=== PATIENT | male | born 1950 | race Caucasian/White ===

== ENCOUNTER 2023-04-14 15:49 | Inpatient (IN) | payer MEDICARE ==
[~2023-04-14] VITALS: Ht 185.4 cm; Wt 84.4 kg
--- NOTE | 2023-04-14 16:35 | NUR ---
BIB CAREGIVER FROM [facility] HAS DIMENTIA
--- NOTE | 2023-04-14 16:41 | NUR ---
COVID SWAB COLLECTED AND SENT TO LAB.
--- NOTE | 2023-04-14 16:48 | NUR ---
ORCHESTRA TEACHER AT BEDSIDE
[2023-04-14 17:12] LABS: BASOPHILS % (AUTO) 0.4 % (0.0-2.0); EOSINOPHILS % (AUTO) 2.6 % (0.0-6.0); HEMATOCRIT 38 % (39-51); HEMOGLOBIN 12.5 g/dL (13.5-17.5); LYMPHOCYTES # (AUTO) 1.4 K/uL (0.8-4.8); LYMPHOCYTES % (AUTO) 28.2 % (20.0-44.0); MEAN CORPUSCULAR HGB CONC 33 g/dl (31.0-36.0); MEAN CORPUSCULAR VOLUME 88 fL (80-96); MONOCYTES # (AUTO) 0.3 K/uL (0.1-1.30); MONOCYTES % (AUTO) 6.6 % (2.0-12.0); NEUTROPHILS # (AUTO) 3.1 K/uL (1.8-8.9); NEUTROPHILS % (AUTO) 62.2 % (43.0-81.0); PLATELET COUNT (AUTO) 73 K/uL (150-450); RED BLOOD CELL COUNT(AUTO) 4.34 MIL/uL (4.5-6.0)
[2023-04-14 17:23] LABS: CALCIUM, SERUM 9.2 mg/dL (8.5-10.1); CARBON DIOXIDE 31 mmol/L (21-32); CHLORIDE 108 mmol/L (98-107); CREATININE 0.6 mg/dL (0.6-1.3); GLUCOSE 97 mg/dL (74-106); POTASSIUM 3.8 mmol/L (3.5-5.1); SODIUM SERUM 145 mmol/L (136-145); UREA NITROGEN, BLOOD 14 mg/dL (7-18)
[2023-04-14] MEDS ORDERED: SERT100T12 PO (17:30)
[2023-04-14] MEDS ORDERED: HALO2ORA3 PO (17:30)
[2023-04-14] MEDS ORDERED: LORA2ORA5 PO (17:30)
[2023-04-14] MEDS ORDERED: LEVO500T90 PO (17:30)
[2023-04-14] MEDS ORDERED: RIVA10TA PO (17:30)
[2023-04-14] MEDS ORDERED: HALO2ORA4 PO (17:30)
[2023-04-14] MEDS ORDERED: OXCA150T13 PO (17:30)
[2023-04-14] MEDS ORDERED: METO-357 PO (17:30)
[2023-04-14] MEDS ORDERED: MYRBETRIQ PO (17:30)
[2023-04-14] MEDS ORDERED: QUET25TA PO ×2 (17:30)
[2023-04-14] MEDS ORDERED: LIDO1ADH82 TP (17:30)
[2023-04-14] MEDS ORDERED: ACET-868 PO (17:30)
[2023-04-14] MEDS ORDERED: ATOR40TA PO (17:30)
[2023-04-14] MEDS ORDERED: DIGO125T PO (17:30)
[2023-04-14] MEDS ORDERED: DONE10TA44 PO (17:30)
[2023-04-14] MEDS ORDERED: IBUP-1953 PO (17:30)
[2023-04-14 17:38] LABS: ALANINE AMINOTRANSFERASE 23 U/L (12-78); ALBUMIN 3.6 g/dL (3.4-5.0); ALCOHOL, BLOOD < 3 mg/dL (0-0); ALKALINE PHOSPHATASE 72 U/L (46-116); ASPARTATE AMINOTRANSFERASE 17 U/L (15-37); BILIRUBIN,DIRECT 0.2 mg/dL (0.0-0.2); BILIRUBIN,TOTAL 0.9 mg/dL (0.2-1.0); TOTAL PROTEIN, SERUM 6.2 g/dL (6.4-8.2)
[2023-04-14 18:29] LABS: LYMPHOCYTES % (MANUAL) 32 % (16-48); MONOCYTES % (MANUAL) 6 % (0-11.0); NEUTROPHILS % (MANUAL) 62 (42-76)
[2023-04-14] MEDS ORDERED: LORAZEPAM INJ 2 MG/ML VIAL ONE (18:53)
[2023-04-14] MEDS ORDERED: LORAZEPAM INJ 2 MG/ML VIAL IV ONE (19:00)
--- NOTE | 2023-04-14 19:26 | NUR ---
ALONDRA BREWER [phone]
--- NOTE | 2023-04-14 19:53 | NUR ---
OSMAN MENDEZ CALLED TO GIVE UPDATE ON PSYCH CLINICIAN FORTINO. FORTINO IS ON HIS WAY TO EVALUATE.
--- NOTE | 2023-04-14 20:34 | NUR ---
ROOM GPS 212
--- NOTE | 2023-04-14 21:26 | NUR ---
GPS 220
--- NOTE | 2023-04-14 21:56 | NUR ---
Report given to Burton PONCE
--- NOTE | 2023-04-14 22:28 | NUR ---
PT TRANSFERRED TO GPS 220 VIA HOSPITAL PROTOCOL
[2023-04-14] MEDS ORDERED: ACETAMINOPHEN 325 MG TABLET PO PRN (22:30)
[2023-04-14] MEDS ORDERED: MAG HYDROX/AL HYDROX/SIMETH 30 ML UDC PO PRN (22:30)
[2023-04-14] MEDS ORDERED: MAGNESIUM HYDROXIDE 30 ML UDC PO PRN (22:30)
[2023-04-14] MEDS ORDERED: BLOOD SUGAR DIAGNOSTIC 1 EACH STRIP IN ONE (23:00)
--- NOTE | 2023-04-14 23:00 | NUR ---
RN NOTES: REFUSED FULL BODY SKIN ASSESSMENT AND PHOTS TAKEN PT. REFUSED FULL BODY SKIN ASSESSMENT AND PHOTOS TAKEN ,PT.ALLOWED ONLY RIGHT/ LEFT ARMS, HANDS,ELBOWS TO BE ASSESS,PT.BEHAVIOR VERY UNCOOPERATIVE PARANOID, AGGRESSIVE , UNPERDICTABLE AT THIS TIME.PER PT. STATES LIVE ME ALONE .
[2023-04-14 23:23] VITALS: BP 123/74
--- NOTE | 2023-04-14 23:41 | NUR ---
RN NOTES : ADMISSION NOTES: ADMITTED THIS 72Y/O MALE PATIENT ADMITTED FROM [facility], INITIALLY FROM [facility]. ADMITTED TO 5150 HOLD PER HOLD GD , DTO PT. INCREASED AGITATION AND AGGRESSIVE, BEHAVIOR AT [facility], UPON FACE TO FACE ASSESSMENT PATIENT IS A&OX1 ,CONFUSED, FORGETFUL,TANGENTIAL, ANXIOUS, EASILY AGITATED ,DISORGNIZED,HYPERVERBAL TALKING ,DISHELVED,POOR HYGINE, UNCOOPERTIVE,POOR DECISION MAKING, CHALLENGING,GUARDED, DENIES SI /HI AT THIS TIME, PT. IS POOR HISTORIAN, POOR INSIGHT ,POOR JUDGEMENT , BOTH MD AWARE AND NOTIFIED OF THE ADMISSION, BELONGINGS CONTRABAND WERE DONE , PT. REFUSED SIGNS ADMISSION CONSENT PAPER DUE TO CONFUSED,DISORGNIZED,PT.REFUSED FULL BODY SKIN ASSESSMENT AND PHOTOS TAKEN AND REFUSED INITIALLY ACCU CHECK ENCOURAGED X3 BUT PT.STRONGLY REFUSED , PT. RIGHTS DISCUSS BY HOOP FLARING MACHINE OPERATOR HELPER , PROVIDE THE PT. WITH HANDBOOK, AND MEDICATIONS GUIDE, ENVIRONMENTAL SAFETY CHECK DONE, ENCOURAGED PT. VERBALIZED ANY FEELING CONCERN TO STAFF, ORIENT TO UNIT POLICY, NO ACUTE DISTRESS NOTED,VITAL SIGNS WNL ,DENIES ANY PAIN AT THIS TIME,WILL CONTINUE TO MONITOR FOR Q15 SAFETY AND BEHAVIOR.
[2023-04-15 08:00] VITALS: BP 136/80
[2023-04-15] MEDS ORDERED: Medication Not On Formulary EA ([Myrbetriq] 50 MG) PO SCH (09:00)
[2023-04-15] MEDS: METOPROLOL SUCCINATE 50 MG TAB.SR.24H PO SCH (09:08)
[2023-04-15] MEDS: DIGOXIN 0.125 MG TABLET PO SCH (09:09)
[2023-04-15] MEDS: ACETAMINOPHEN 325 MG TABLET PO SCH ×3 (09:09→16:56)
[2023-04-15] MEDS: DIVALPROEX SODIUM 125 MG CAP.SPRINK PO SCH ×3 (11:55→16:56)
[2023-04-15] MEDS: SERTRALINE HCL 50 MG TABLET PO SCH (11:55)
[2023-04-15] MEDS: QUETIAPINE FUMARATE 25 MG TABLET PO SCH ×2 (11:55→16:56)
--- NOTE | 2023-04-15 12:03 | NUR ---
RN-NOTES DEPAKOTE 1300 DOSAGE HELD DUE TO PREVIOUS ADMINISTRATION AT 1155. DR. BOCANEGRA NOTIFIED AND T.O. TO HOLD MEDICATION RECEIVED.
[2023-04-15] MEDS: LORAZEPAM 0.5 MG TABLET PO PRN (12:53)
--- NOTE | 2023-04-15 12:53 | NUR ---
RN- NOTES ATIVAN ADMINISTERED DUE TO PATIENT INCREASED AGITATION AND YELLING.
--- NOTE | 2023-04-15 15:16 | NUR ---
RN-CO: Notified Dr Baptiste regarding poor PO , refusing meal. Awaiting for order.
[2023-04-15 16:00] VITALS: BP 102/68
[2023-04-15] MEDS: ENSURE ENLIVE CHOC 237 ML CAN PO SCH (16:56)
[2023-04-15] MEDS: ATORVASTATIN 40 MG TABLET PO SCH (17:03)
[2023-04-15] MEDS: RIVAROXABAN 10 MG TABLET PO SCH (17:04)
--- NOTE | 2023-04-15 18:41 | NUR ---
RN- CLOSING NOTES PATIENT AWAKE, SITTING UP IN THE MARIAN CHAIR, BREATHING EVEN AND NON LABORED WITH NO S/S OF DISTRESS. PATIENT IS COOPERATIVE/UNCOOPERATIVE AT TIMES, CONFUSED, DISORIENTED, ANXIOUS, RESPONDING TO VISUAL AND AUDITORY HALLUCINATIONS, RAMBLING TO HIMSELF, AND HYPERVERBAL. PATIENT IS MEDICATION RESISTANT BUT MEDICATION COMPLIANT WITH ENCOURAGEMENT. PATIENT IS RESISTANT TO CARE. DENIES SI/HI BUT IS CONFUSED AT THIS TIME. WILL CONTINUE TO MONITOR Q 15 MINUTES FOR SAFETY AND BEHAVIOR.
[2023-04-15 20:51] VITALS: BP 100/64
[2023-04-15] MEDS: OXCARBAZEPINE 150 MG TABLET PO SCH (21:06)
[2023-04-15] MEDS: DONEPEZIL 5 MG TABLET PO SCH (21:06)
[2023-04-15] MEDS ORDERED: QUETIAPINE FUMARATE 25 MG TABLET PO SCH (22:00)
[2023-04-15] MEDS: TEMAZEPAM 7.5 MG CAPSULE PO PRN (22:24)
--- NOTE | 2023-04-15 22:24 | NUR ---
RN- NOTES RESTORIL ADMINISTERED DUE TO PATIENT'S INCREASED WAKEFULNESS AND RESTLESSNESS.
--- NOTE | 2023-04-16 06:32 | NUR ---
RN- CLOSING NOTES PATIENT ASLEEP IN BED, BREATHING EVEN AND NON LABORED WITH NO S/S OF DISTRESS. PATIENT IS COOPERATIVE/UNCOOPERATIVE AT TIMES, CONFUSED, DISORIENTED, ANXIOUS, RESPONDING TO VISUAL AND AUDITORY HALLUCINATIONS, RAMBLING TO HIMSELF, AND HYPERVERBAL. PATIENT IS MEDICATION RESISTANT BUT MEDICATION COMPLIANT WITH ENCOURAGEMENT. PATIENT IS RESISTANT TO CARE. DENIES SI/HI BUT IS CONFUSED AT THIS TIME. WILL CONTINUE TO MONITOR Q 15 MINUTES FOR SAFETY AND BEHAVIOR.
[2023-04-16 07:15] LABS: BASOPHILS % (AUTO) 0.5 % (0.0-2.0); EOSINOPHILS % (AUTO) 2.1 % (0.0-6.0); HEMATOCRIT 38 % (39-51); HEMOGLOBIN 12.5 g/dL (13.5-17.5); LYMPHOCYTES # (AUTO) 1.4 K/uL (0.8-4.8); LYMPHOCYTES % (AUTO) 24.4 % (20.0-44.0); MEAN CORPUSCULAR HGB CONC 33 g/dl (31.0-36.0); MEAN CORPUSCULAR VOLUME 89 fL (80-96); MONOCYTES # (AUTO) 0.4 K/uL (0.1-1.30); MONOCYTES % (AUTO) 7.4 % (2.0-12.0); NEUTROPHILS # (AUTO) 3.9 K/uL (1.8-8.9); NEUTROPHILS % (AUTO) 65.6 % (43.0-81.0); PLATELET COUNT (AUTO) 75 K/uL (150-450); RED BLOOD CELL COUNT(AUTO) 4.29 MIL/uL (4.5-6.0); WHITE BLOOD COUNT (AUTO) 5.9 K/uL (4.3-11.0)
[2023-04-16 07:27] LABS: CHOLESTEROL 102 mg/dL (<200); HDL CHOLESTEROL 50 mg/dL (40-60); LDL 51 mg/dL (0-99); TRIGLYCERIDES 51 mg/dL (30-150)
[2023-04-16 07:32] LABS: CALCIUM, SERUM 9.1 mg/dL (8.5-10.1); CARBON DIOXIDE 30 mmol/L (21-32); CHLORIDE 109 mmol/L (98-107); CREATININE 0.6 mg/dL (0.6-1.3); GLUCOSE 86 mg/dL (74-106); POTASSIUM 3.4 mmol/L (3.5-5.1); SODIUM SERUM 146 mmol/L (136-145); UREA NITROGEN, BLOOD 12 mg/dL (7-18)
[2023-04-16 07:47] LABS: DIGOXIN 0.34 ng/mL (0.90-2.00)
[2023-04-16 08:00] VITALS: BP 127/64
[2023-04-16] MEDS: ACETAMINOPHEN 325 MG TABLET PO SCH ×3 (08:27→17:49)
[2023-04-16] MEDS: ENSURE ENLIVE CHOC 237 ML CAN PO SCH ×2 (08:27→17:49)
[2023-04-16] MEDS: DIVALPROEX SODIUM 125 MG CAP.SPRINK PO SCH ×3 (08:37→17:49)
[2023-04-16] MEDS: QUETIAPINE FUMARATE 25 MG TABLET PO SCH ×2 (08:37→17:48)
[2023-04-16] MEDS: SERTRALINE HCL 50 MG TABLET PO SCH (08:37)
[2023-04-16] MEDS: METOPROLOL SUCCINATE 50 MG TAB.SR.24H PO SCH (08:38)
[2023-04-16] MEDS: DIGOXIN 0.125 MG TABLET PO SCH (08:39)
--- NOTE | 2023-04-16 09:21 | NUR ---
HAIDER Initial Discharge Note: Patient currently resides at [facility] locatedat [address] [place] [address]; ([phone]). HAIDER spoke with Annia branch ([phone]) who stated that pt is welcomed back when stable they would just need to re-assess pt before pt returning back. HAIDER will contact pt's Tiffanie ([phone]) to discuss treatment/discharge plan. HAIDER will work with the family, pt, and doctor to help coordinate appropriate discharge.
--- NOTE | 2023-04-16 09:21 | NUR ---
HAIDER Clinical Note: Pt placed on a 5150 hold for danger to others and GD. Per hold, pt was aggressive at [facility]. Patient currently resides at [facility] locatedat [address] [place] [address]; ([phone]). HAIDER spoke with Annia branch ([phone]) who stated that pt is welcomed back when stable they would just need to re-assess pt before pt returning back. HAIDER will contact pt's Tiffanie ([phone]) to discuss treatment/discharge plan.
[2023-04-16] MEDS ORDERED: POTASSIUM CHLORIDE 20 MEQ TAB.PRT.SR PO SCH (10:00)
--- NOTE | 2023-04-16 13:23 | NUR ---
HAIDER Family Contact: HAIDER contacted pt's Tiffanie ([phone]) to discuss treatment/discharge plan. Tiffanie stated that she is the DPOA and this script writer requested DPOA document from [facility] ([phone]) to be sent. Annia branch stated she will send it. Tiffanie stated when pt is stable and medications she would want pt to return back to [facility]. Noted.
--- NOTE | 2023-04-16 13:45 | NUR ---
NURSE NOTE: TEXTED TECH TO LET HER KNOW TO COME BACK FOR DOPPLER. DID NOT RECEIVE A TEXT BACK. WILL CONT TO MONITOR.
[2023-04-16] MEDS: LORAZEPAM 0.5 MG TABLET PO PRN (16:50)
--- NOTE | 2023-04-16 16:50 | NUR ---
NURSE NOTE: PT AGITATED AT THIS TIME. YELLING AT STAFF, COMBATIVE. ATIVAN PO ADMINISTERED ORDERED. PT YONATAN WELL. WILL CONT TO MONITOR.
[2023-04-16 17:26] VITALS: BP 123/64
[2023-04-16] MEDS: ATORVASTATIN 40 MG TABLET PO SCH (17:49)
[2023-04-16] MEDS: RIVAROXABAN 10 MG TABLET PO SCH (17:49)
--- NOTE | 2023-04-16 17:50 | NUR ---
NURSE NOTE: PT CALM AT THIS TIME. ATIVAN EFFECTIVE. WILL CONT TO MONITOR.
--- NOTE | 2023-04-16 18:45 | NUR ---
NURSE NOTE: ATTEMPTED TO COLLECT CLEAN CATCH URINE. PT HAD JUST VOIDED. WILL PASS ON TO PM SHIFT.
[2023-04-16] MEDS: OXCARBAZEPINE 150 MG TABLET PO SCH (21:07)
[2023-04-16] MEDS: DONEPEZIL 5 MG TABLET PO SCH (21:08)
--- NOTE | 2023-04-17 07:10 | NUR ---
RN NOTE; WE TRIED TO COLLECT URINE VIA STRAIGHT CATH BUT PT START KICKING, AGGRESSIVE AND SCREAMING.
[2023-04-17 08:00] VITALS: BP 114/77
[2023-04-17] MEDS: ENSURE ENLIVE CHOC 237 ML CAN PO SCH ×2 (08:35→17:26)
[2023-04-17] MEDS: ACETAMINOPHEN 325 MG TABLET PO SCH ×3 (09:26→17:27)
[2023-04-17] MEDS: QUETIAPINE FUMARATE 25 MG TABLET PO SCH ×2 (09:26→17:27)
[2023-04-17] MEDS: METOPROLOL SUCCINATE 50 MG TAB.SR.24H PO SCH (09:27)
[2023-04-17] MEDS: DIVALPROEX SODIUM 125 MG CAP.SPRINK PO SCH ×3 (09:27→17:26)
[2023-04-17] MEDS: DIGOXIN 0.125 MG TABLET PO SCH (09:27)
[2023-04-17] MEDS: LORAZEPAM 0.5 MG TABLET PO PRN (11:11)
[2023-04-17] MEDS ORDERED: SERTRALINE HCL 50 MG TABLET PO SCH (13:00)
[2023-04-17] MEDS: SERTRALINE HCL 50 MG TABLET PO SCH (13:31)
[2023-04-17 16:00] VITALS: BP 116/62
[2023-04-17] MEDS: ATORVASTATIN 40 MG TABLET PO SCH (17:27)
[2023-04-17] MEDS: RIVAROXABAN 10 MG TABLET PO SCH (17:28)
--- NOTE | 2023-04-17 19:00 | NUR ---
RN- CLOSING NOTES PATIENT AWAKE, SITTING UP IN THE MARIAN CHAIR, BREATHING EVEN AND NON LABORED WITH NO S/S OF DISTRESS. PATIENT IS COOPERATIVE/UNCOOPERATIVE AT TIMES, CONFUSED, DISORIENTED, ANXIOUS, RESPONDING TO VISUAL AND AUDITORY HALLUCINATIONS, RAMBLING TO HIMSELF, AND HYPERVERBAL. PATIENT IS MEDICATION RESISTANT BUT MEDICATION COMPLIANT WITH ENCOURAGEMENT. PATIENT IS RESISTANT TO CARE AT TIMES. DENIES SI/HI BUT IS CONFUSED AT THIS TIME. WILL CONTINUE TO MONITOR Q 15 MINUTES FOR SAFETY AND BEHAVIOR. AT THIS TIME UP IN MARIAN- CHAIR IN [facility], PO FLUIDS OFFERED AND TAKEN. .
[2023-04-17 19:45] VITALS: BP 107/65
[2023-04-17] MEDS: OXCARBAZEPINE 150 MG TABLET PO SCH (22:23)
[2023-04-17] MEDS: DONEPEZIL 5 MG TABLET PO SCH (22:24)
[2023-04-18] MEDS: LORAZEPAM 0.5 MG TABLET PO PRN ×2 (04:22→12:46)
[2023-04-18 08:00] VITALS: BP 126/65
[2023-04-18] MEDS: ENSURE ENLIVE CHOC 237 ML CAN PO SCH ×2 (08:20→17:13)
[2023-04-18] MEDS: DIVALPROEX SODIUM 125 MG CAP.SPRINK PO SCH ×4 (09:00→17:13)
[2023-04-18] MEDS: ACETAMINOPHEN 325 MG TABLET PO SCH ×4 (09:00→17:13)
[2023-04-18] MEDS: QUETIAPINE FUMARATE 25 MG TABLET PO SCH ×4 (09:00→17:13)
[2023-04-18] MEDS: METOPROLOL SUCCINATE 50 MG TAB.SR.24H PO SCH ×2 (09:00→09:39)
[2023-04-18] MEDS: DIGOXIN 0.125 MG TABLET PO SCH ×2 (09:00→09:40)
--- NOTE | 2023-04-18 09:09 | NUR ---
WOUND CARE CONSULT: PT EATING AT THIS TIME. LEFT ELBOW ABRASION IS DRY AT THIS TIME. PER NURSING STAFF. THERE IS REDNESS/RASH TO INNER BUTTOCKS, PRESENT ON ADMISSION. RECOMMENDATIONS MADE FOR SKIN PROTECTION. DISCUSSED WITH NURSING STAFF. MD IN AGREEMENT WITH PLAN OF CARE.
[2023-04-18] MEDS: SERTRALINE HCL 50 MG TABLET PO SCH (12:46)
--- NOTE | 2023-04-18 12:46 | NUR ---
RN- NOTES ATIVAN ADMINISTERED DUE TO PATIENT INCREASED AGITATION, AGGRESSIVE BEHAVIOR, AND YELLING/SCREAMING AT OTHER PATIENTS/STAFF.
[2023-04-18 16:00] VITALS: BP 117/60
[2023-04-18] MEDS: ATORVASTATIN 40 MG TABLET PO SCH (17:12)
[2023-04-18] MEDS: RIVAROXABAN 10 MG TABLET PO SCH (17:15)
[2023-04-18] MEDS: CLOTRIMAZOLE 1% 15 GM TUBE TP SCH (17:15)
--- NOTE | 2023-04-18 18:38 | NUR ---
RN- CLOSING NOTES PATIENT AWAKE, SITTING UP IN THE MARIAN CHAIR, BREATHING EVEN AND NON LABORED WITH NO S/S OF DISTRESS. PATIENT IS COOPERATIVE/UNCOOPERATIVE AT TIMES, CONFUSED, DISORIENTED, ANXIOUS, ADMITTING TO VISUAL HALLUCINATIONS, AND RAMBLING TO HIMSELF. PATIENT IS MEDICATION RESISTANT BUT MEDICATION COMPLIANT WITH ENCOURAGEMENT. DENIES SI/HI BUT IS CONFUSED AT THIS TIME. WILL CONTINUE TO MONITOR Q 15 MINUTES FOR SAFETY AND BEHAVIOR.
[2023-04-18 20:27] VITALS: BP 106/62
[2023-04-18] MEDS: DONEPEZIL 5 MG TABLET PO SCH (21:40)
[2023-04-18] MEDS: OXCARBAZEPINE 150 MG TABLET PO SCH (21:41)
[2023-04-19 08:00] VITALS: BP 126/64
[2023-04-19] MEDS: ENSURE ENLIVE CHOC 237 ML CAN PO SCH ×2 (08:37→17:00)
[2023-04-19] MEDS: ACETAMINOPHEN 325 MG TABLET PO SCH ×3 (08:38→17:00)
[2023-04-19] MEDS: DIVALPROEX SODIUM 125 MG CAP.SPRINK PO SCH ×3 (08:38→17:00)
[2023-04-19] MEDS: METOPROLOL SUCCINATE 50 MG TAB.SR.24H PO SCH (08:38)
[2023-04-19] MEDS: QUETIAPINE FUMARATE 25 MG TABLET PO SCH (08:39)
[2023-04-19] MEDS: DIGOXIN 0.125 MG TABLET PO SCH (08:39)
[2023-04-19] MEDS: CLOTRIMAZOLE 1% 15 GM TUBE TP SCH ×2 (09:37→17:59)
[2023-04-19] MEDS: risperiDONE 1 MG TABLET PO SCH ×2 (12:40→17:00)
--- NOTE | 2023-04-19 15:35 | NUR ---
Pt. is highly agitated, screaming, yelling, tried to get out from bed, combative and not following direction. Addendum: 04/19/23 at 1604 by NORMA COLLINS RN Pt. is combative to staffs and aggressive and code claire was called. Dr. Michaud gave an order of Zyprexa 10 mg IM and Ativan 5 mg IM. Addendum: 04/19/23 at 1801 by NORMA OCLLINS RN Clarification of the order: Zyprexa 10 mg IM and Ativan 1 mg IM.
[2023-04-19] MEDS ORDERED: LORAZEPAM INJ 2 MG/ML VIAL IM ONE (16:00)
[2023-04-19] MEDS ORDERED: OLANZAPINE 10 MG VIAL IM ONE (16:00)
[2023-04-19] MEDS: RIVAROXABAN 10 MG TABLET PO SCH (18:00)
[2023-04-19] MEDS: ATORVASTATIN 40 MG TABLET PO SCH (18:00)
--- NOTE | 2023-04-19 18:00 | NUR ---
RN-NOTES ALL 1700 MEDICATIONS WAS NOT ADMINISTER DUE TO PATIENT IS TOO SEDATED AT THIS TIME,NO ACUTE DISTRESS. PATIENT'S ALIE BEST WAS NOTIFIED REGARDING THE IM MEDICATIONS. WILL CONT. MONITORING FOR SAFETY AND BEHAVIOR. WILL ENDORSE TO INCOMING SHIFT/ NURSE FOR THE CONTINUITY OF CARE. Addendum: 04/19/23 at 1805 by MICHAELLE CHAVEZ RN ALSO 1800 MEDICATIONS WAS NOT ADMINISTER DUE TO PATIENT WAS TOO SEDATED.
[2023-04-19 19:01] VITALS: BP 120/65
--- NOTE | 2023-04-19 19:57 | NUR ---
GENERATOR SWITCHBOARD OPERATOR GPS NOTE PT RCVD IN BED, APPEARS SLEEPING, EASY TO AROUSE, NO S/SX OF ACUTE RESPIRATORY DISTRESS , BILAT CHEST EXPANSION NOTED, PT AT ROOM AIR, BREATHING EVEN AND UNLABORED. A/O 1-2. DENIES PAIN AT THIS TIME. SAFETY SR'S UP ORDERED. WILL MONITOR Q15 MINS FOR PT'S SAFETY AND BEHAVIOR. SAFETY MEASURES OBSERVED.
[2023-04-19 20:00] VITALS: BP 120/75
[2023-04-19] MEDS: DONEPEZIL 5 MG TABLET PO SCH (21:44)
[2023-04-19] MEDS: OXCARBAZEPINE 150 MG TABLET PO SCH (21:44)
[2023-04-19] MEDS: TEMAZEPAM 7.5 MG CAPSULE PO PRN (22:23)
--- NOTE | 2023-04-19 22:24 | NUR ---
GPS SUPERVISOR BROADLOOM NOTE PT AWAKE, LITTLE BIT RESTLESS, GUARDED, MUMBLING, NEEDS FREQUENT REDIRECTION. PRN RESOTRIL 7.5 MG GIVEN FOR INSOMNIA. WILL CONTINUE TO MONITOR Q15 MINS.
--- NOTE | 2023-04-19 23:23 | NUR ---
GPS COMPUTATIONAL THEORY SCIENTIST NOTE 1 HR POST RESTORIL, PT REMAINS AWAKE, CONFUSED, EASILY AGITATED, WITH EPISODES OF PARANOIA, DISHEVELED, 3 STAFFS ASSISTED WITH PT'S CARE, KEPT PT CLEAN AND DRY, REPOSITIONED IN BED- PT UNCOOPERATIVE. CONTINUE TO MONITOR PT'S SAFETY AND BEHAVIOR. SR'S UP ORDERED, BED ALARM ON.
--- NOTE | 2023-04-20 06:11 | NUR ---
GPS CONDENSER WINDER CLOSING NOTES PATIENT AWAKE, RESTING IN HIS BED, BREATHING EVEN AND NON LABORED WITH NO S/S OF DISTRESS. PATIENT IS COOPERATIVE/UNCOOPERATIVE AT TIMES, CONFUSED, DISORIENTED, ANXIOUS, ADMITTING TO VISUAL HALLUCINATIONS, AND RAMBLING TO HIMSELF. PATIENT IS MEDICATION RESISTANT BUT MEDICATION COMPLIANT WITH ENCOURAGEMENT. DENIES SI/HI BUT IS CONFUSED AT THIS TIME. COMBATIVE AND UNCOOPERATIVE WITH CARE, REQUIRED MULTIPLE STAFF FOR PROVIDING CARE AND CLEANING. AM CARE PROVIDED BY 3 STAFFS. PT KEPT CLEAN AND DRY, REPOSITIONED. BED AT LOWEST POSITION, BED ALARM ON, SAFETY MEASURES OBSERVED. WILL CONTINUE TO MONITOR Q 15 MINUTES FOR SAFETY AND BEHAVIOR. WILL ENDORSE CONTINUITY OF CARE TO AM INCOMING NURSE.
[2023-04-20 08:00] VITALS: BP 144/71
[2023-04-20] MEDS: DIVALPROEX SODIUM 125 MG CAP.SPRINK PO SCH ×3 (09:53→17:19)
[2023-04-20] MEDS: ENSURE ENLIVE CHOC 237 ML CAN PO SCH ×2 (09:53→17:00)
[2023-04-20] MEDS: risperiDONE 1 MG TABLET PO SCH ×3 (09:53→17:19)
[2023-04-20] MEDS: ACETAMINOPHEN 325 MG TABLET PO SCH ×3 (09:53→17:19)
[2023-04-20] MEDS: METOPROLOL SUCCINATE 50 MG TAB.SR.24H PO SCH (09:53)
[2023-04-20] MEDS: DIGOXIN 0.125 MG TABLET PO SCH (09:53)
[2023-04-20] MEDS: CLOTRIMAZOLE 1% 15 GM TUBE TP SCH ×2 (09:55→17:24)
--- NOTE | 2023-04-20 11:56 | NUR ---
Court Notification: HAIDER contacted pt's Tiffanie ([phone]) and left a voicemail of [phone] hearing.
--- NOTE | 2023-04-20 11:57 | NUR ---
Court Hearing: Pt's court hearing for 5250 hearing was today and it was upheld for GD and danger to others.
[2023-04-20] MEDS: LORAZEPAM 0.5 MG TABLET PO PRN (15:40)
[2023-04-20 16:00] VITALS: BP 140/72
--- NOTE | 2023-04-20 16:04 | NUR ---
RN-NOTES PATIENT IS AGITATED,COMBATIVE KICKING AND HITTING STAFF WITH BOTH HANDS DURING PATIENT CARE. . REDIRECTED PATIENT AND ATIVAN 1MG P.O GIVEN PRN ORDER. WILL CONT. MONITORING FOR SAFETY AND BEHAVIOR.
--- NOTE | 2023-04-20 17:10 | NUR ---
RN-NOTES PATIENT SLEEPING WITH BREATHING EVEN AND NON LABORED EASILY AROUSED. NO ACUTE DISTRESS NOTED.
[2023-04-20] MEDS: RIVAROXABAN 10 MG TABLET PO SCH (17:19)
[2023-04-20] MEDS: ATORVASTATIN 40 MG TABLET PO SCH (17:19)
--- NOTE | 2023-04-20 20:35 | NUR ---
PIN GAME MACHINE INSPECTOR NOTE RECEIVED PATIENT IN BED SLEEPING BUT EASY TO AROUSE, NO SIGN OF DISTRESS AND DISCOMFORT NOTED AT THIS TIME. SAFETY MEASURES IN PLACE, WILL CONTINUE TO MONITOR FOR ANY CHANGE OF CONDITION.
[2023-04-20] MEDS: OXCARBAZEPINE 150 MG TABLET PO SCH (22:05)
[2023-04-20] MEDS: DONEPEZIL 5 MG TABLET PO SCH (22:05)
[2023-04-21 08:00] VITALS: BP 110/59
[2023-04-21] MEDS: ENSURE ENLIVE CHOC 237 ML CAN PO SCH ×2 (08:25→17:08)
[2023-04-21] MEDS: ACETAMINOPHEN 325 MG TABLET PO SCH ×3 (08:26→17:08)
[2023-04-21] MEDS: DIGOXIN 0.125 MG TABLET PO SCH (08:26)
[2023-04-21] MEDS: DIVALPROEX SODIUM 125 MG CAP.SPRINK PO SCH ×3 (08:26→17:03)
[2023-04-21] MEDS: risperiDONE 1 MG TABLET PO SCH ×3 (08:26→17:03)
[2023-04-21] MEDS: CLOTRIMAZOLE 1% 15 GM TUBE TP SCH ×2 (08:28→17:19)
[2023-04-21] MEDS: METOPROLOL SUCCINATE 50 MG TAB.SR.24H PO SCH (08:28)
[2023-04-21] MEDS: LORAZEPAM 0.5 MG TABLET PO PRN (12:49)
--- NOTE | 2023-04-21 12:50 | NUR ---
RN-NOTES NOTED PATIENT DISROBING,TALKING AND MUMBLING TO SELF,GETTING OUT OF BED UNASSISTED, REDIRECTED AND ATIVAN 1MG P.O GIVEN PRN ORDER. WILL CONT. MONITORING FOR SAFETY AND BEHAVIOR.
--- NOTE | 2023-04-21 13:50 | NUR ---
RN-NOTES PATIENT IN BED CALM ,AWAKE,A/OX1,NO ACUTE DISTRESS NOTED.
[2023-04-21 16:00] VITALS: BP 99/60
[2023-04-21] MEDS: Z GUARD REMEDY 4 OZ OINT TP PRN (17:00)
[2023-04-21] MEDS: ATORVASTATIN 40 MG TABLET PO SCH (17:03)
[2023-04-21] MEDS: RIVAROXABAN 10 MG TABLET PO SCH (17:03)
--- NOTE | 2023-04-21 18:52 | NUR ---
RN-NOTES PATIENT IN BED AWAKE,A/O X1. NOTED WITH LABILE AND AGGRESSIVE BEHAVIOR DURING PATIENT CARE. HITTING AND KICKING STAFF.RESPONDING TO INTERNAL STIMULI. NEEDS FREQUENT REDIRECTIONS AND REORIENTATION TO PLACE TIME AND SITUATIONS. PRN MEDICATIONS GIVEN.GOOD RAN CARE RENDERED .ALL NEEDS ATTENDED AND ANTICIPATED.WILL CONT. MONITORING FOR SAFETY AND BEHAVIOR. WILL ENDORSE TO INCOMING SHIFT/ NURSE FOR THE CONTINUITY OF CARE.
[2023-04-21 20:00] VITALS: BP 111/66
--- NOTE | 2023-04-21 20:23 | NUR ---
GPS PUBLIC SAFETY POLICE NOTE: RECEIVED PATIENT AWAKE, RESTING IN HIS BED, BREATHING EVEN AND NON LABORED WITH EQUAL RISE AND FALL OF THE CHEST.RESIDENT IS DISPLAYING ,NO APPARENT DISTRESS. PATIENT IS COOPERATIVE/UNCOOPERATIVE AT TIMES, CONFUSED, DISORIENTED, ANXIOUS, ADMITTING TO VISUAL HALLUCINATIONS, AND RAMBLING TO HIMSELF. PATIENT IS MEDICATION RESISTANT BUT MEDICATION COMPLIANT WITH ENCOURAGEMENT. DENIES SI/HI BUT IS CONFUSED AT THIS TIME. COMBATIVE AND UNCOOPERATIVE WITH CARE, TURNING NAD REPSITIONING Q2H OR PRN FOR SAFETY AND CIRCULATION. BED AT LOWEST.LOCKED POSITION, WITH SIDE RAILS UP X2. BED ALARM ON, SAFETY MEASURES OBSERVED. WILL CONTINUE TO MONITOR Q 15 MINUTES FOR SAFETY AND BEHAVIOR. WILL ENDORSE CONTINUITY OF CARE TO AM INCOMING NURSE.
[2023-04-21] MEDS: DONEPEZIL 5 MG TABLET PO SCH (21:23)
[2023-04-21] MEDS: OXCARBAZEPINE 150 MG TABLET PO SCH (21:24)
--- NOTE | 2023-04-22 07:50 | NUR ---
GPS RN NOTES RECEIVED PT SLEEPING IN BED, EASILY AWAKEN, VERBALLY RESPONSIVE ABLE TO FOLLOW COMMANDS, PATIENT WILL NOT OPEN HIS EYES, AOX1, NOT IN ANY FORM OF ACUTE DISTRESS. MENTIONED WANTS TO SLEEP MORE. ABLE TO VERBALIZE NEEDS, BREATHING WITHOUT DIFFICULTY ON ROOM AIR, DENIED PAIN NOR DISCOMFORT AT THIS MOMENT. DENIED SI/HI. ORIENTED TO ROOM AND STAFF. SAFETY MEASURES IN PLACE: BED IN LOWEST AND LOCKED POSITION, SIDE RAILS UP X2, TRAY TABLE WITHIN EASY REACH. WILL DO VISUAL CHECKS ON PATIENT FREQUENTLY AND WILL MONITOR FOR SAFETY.
[2023-04-22 08:00] VITALS: BP 119/75
[2023-04-22] MEDS: ENSURE ENLIVE CHOC 237 ML CAN PO SCH ×2 (08:08→16:27)
[2023-04-22] MEDS: risperiDONE 1 MG TABLET PO SCH ×3 (08:08→16:27)
[2023-04-22] MEDS: DIGOXIN 0.125 MG TABLET PO SCH (08:21)
[2023-04-22] MEDS: ACETAMINOPHEN 325 MG TABLET PO SCH ×3 (08:22→16:28)
[2023-04-22] MEDS: DIVALPROEX SODIUM 125 MG CAP.SPRINK PO SCH ×3 (08:43→16:27)
[2023-04-22] MEDS: METOPROLOL SUCCINATE 50 MG TAB.SR.24H PO SCH (08:44)
[2023-04-22] MEDS: CLOTRIMAZOLE 1% 15 GM TUBE TP SCH ×2 (08:49→16:28)
[2023-04-22 16:00] VITALS: BP 108/60
--- NOTE | 2023-04-22 17:00 | NUR ---
RN NOTES PATIENT WAS COMBATIVE WHILE BEING CHANGED, ALSO PATIENT WAS MESSING WITH HIS FECES. PATIENT WAS SUCCESSFULLY CLEANED AND EVENTUALLY CALMED DOWN.
[2023-04-22] MEDS: ATORVASTATIN 40 MG TABLET PO SCH (17:17)
[2023-04-22] MEDS: RIVAROXABAN 10 MG TABLET PO SCH (17:24)
--- NOTE | 2023-04-22 18:59 | NUR ---
GPS RN CLOSING NOTES PATIENT IS SLEEPING COMFORTABLY IN BED, EASILY AWAKEN, CALM, RESPONSIVE, AOX1, BREATHING ON ROOM AIR WITHOUT DIFFICULTY, NOT IN ANY FORM OF ACUTE DISTRESS, SAFETY MEASURES IN PLACE: BED IN LOWEST AND LOCKED POSITION, SIDE RAILS UP X2, TRAY TABLE WITHIN EASY REACH. WILL ENDORSE TO BACK WINDER NURSE.
[2023-04-22 20:00] VITALS: BP 140/63
[2023-04-22 20:45] VITALS: BP 140/63
[2023-04-22] MEDS: DONEPEZIL 5 MG TABLET PO SCH (21:58)
[2023-04-22] MEDS: OXCARBAZEPINE 150 MG TABLET PO SCH (21:58)
[2023-04-22] MEDS: LORAZEPAM 0.5 MG TABLET PO PRN (22:46)
[2023-04-23 08:00] VITALS: BP 134/74
[2023-04-23] MEDS: ENSURE ENLIVE CHOC 237 ML CAN PO SCH ×2 (08:29→17:51)
[2023-04-23] MEDS: LORAZEPAM 0.5 MG TABLET PO PRN ×2 (08:43→13:49)
[2023-04-23] MEDS: risperiDONE 1 MG TABLET PO SCH ×3 (08:43→17:00)
[2023-04-23] MEDS: ACETAMINOPHEN 325 MG TABLET PO SCH ×3 (08:43→17:00)
[2023-04-23] MEDS: DIGOXIN 0.125 MG TABLET PO SCH (08:44)
[2023-04-23] MEDS: DIVALPROEX SODIUM 125 MG CAP.SPRINK PO SCH ×3 (08:44→17:00)
[2023-04-23] MEDS: METOPROLOL SUCCINATE 50 MG TAB.SR.24H PO SCH (08:44)
[2023-04-23] MEDS: CLOTRIMAZOLE 1% 15 GM TUBE TP SCH ×2 (09:42→17:00)
[2023-04-23 16:00] VITALS: BP 100/55
[2023-04-23] MEDS: RIVAROXABAN 10 MG TABLET PO SCH (17:51)
[2023-04-23] MEDS: ATORVASTATIN 40 MG TABLET PO SCH (17:52)
[2023-04-23 21:20] VITALS: BP 123/67
[2023-04-23] MEDS: OXCARBAZEPINE 150 MG TABLET PO SCH (22:22)
[2023-04-23] MEDS: DONEPEZIL 5 MG TABLET PO SCH (22:22)
[2023-04-24 07:02] LABS: BASOPHILS % (AUTO) 0.3 % (0.0-2.0); EOSINOPHILS % (AUTO) 1.7 % (0.0-6.0); HEMATOCRIT 43 % (39-51); HEMOGLOBIN 14.2 g/dL (13.5-17.5); LYMPHOCYTES # (AUTO) 1.5 K/uL (0.8-4.8); LYMPHOCYTES % (AUTO) 24.1 % (20.0-44.0); MEAN CORPUSCULAR HGB CONC 33 g/dl (31.0-36.0); MEAN CORPUSCULAR VOLUME 87 fL (80-96); MONOCYTES # (AUTO) 0.4 K/uL (0.1-1.30); MONOCYTES % (AUTO) 6.8 % (2.0-12.0); NEUTROPHILS # (AUTO) 4.2 K/uL (1.8-8.9); NEUTROPHILS % (AUTO) 67.1 % (43.0-81.0); PLATELET COUNT (AUTO) 85 K/uL (150-450); RED BLOOD CELL COUNT(AUTO) 4.97 MIL/uL (4.5-6.0); WHITE BLOOD COUNT (AUTO) 6.3 K/uL (4.3-11.0)
[2023-04-24 07:07] LABS: ALBUMIN 3.1 g/dL (3.4-5.0); BILIRUBIN,TOTAL 0.9 mg/dL (0.2-1.0); CALCIUM, SERUM 9.2 mg/dL (8.5-10.1); CREATININE 0.6 mg/dL (0.6-1.3); POTASSIUM 3.9 mmol/L (3.5-5.1); TOTAL PROTEIN, SERUM 6.9 g/dL (6.4-8.2)
[2023-04-24] MEDS: ENSURE ENLIVE CHOC 237 ML CAN PO SCH ×2 (07:40→17:21)
[2023-04-24 08:00] VITALS: BP 124/99
[2023-04-24] MEDS: risperiDONE 1 MG TABLET PO SCH ×3 (08:20→17:00)
[2023-04-24] MEDS: DIGOXIN 0.125 MG TABLET PO SCH (08:21)
[2023-04-24] MEDS: METOPROLOL SUCCINATE 50 MG TAB.SR.24H PO SCH (08:22)
[2023-04-24] MEDS: DIVALPROEX SODIUM 125 MG CAP.SPRINK PO SCH ×4 (08:22→17:00)
[2023-04-24] MEDS: ACETAMINOPHEN 325 MG TABLET PO SCH ×3 (08:22→17:00)
[2023-04-24] MEDS: CLOTRIMAZOLE 1% 15 GM TUBE TP SCH ×2 (08:35→17:00)
[2023-04-24 08:41] LABS: EOSINOPHILS % (MANUAL) 1 % (0-4); LYMPHOCYTES % (MANUAL) 23 % (16-48); MONOCYTES % (MANUAL) 2 % (0-11.0); NEUTROPHILS % (MANUAL) 74 (42-76)
[2023-04-24] MEDS: LORAZEPAM 0.5 MG TABLET PO PRN (12:00)
--- NOTE | 2023-04-24 12:01 | NUR ---
RN- NOTES ATIVAN ADMINISTERED DUE TO INCREASED AGITATION AND COMBATIVENESS TO CARE.
--- NOTE | 2023-04-24 12:59 | NUR ---
RN- NOTES DEPAKOTE 1300 HELD DUE TO RECENT ADMINISTRATION OF DEPAKOTE AT 1200.
[2023-04-24 16:00] VITALS: BP 100/51
[2023-04-24] MEDS: ATORVASTATIN 40 MG TABLET PO SCH (17:09)
[2023-04-24] MEDS: RIVAROXABAN 10 MG TABLET PO SCH (17:09)
--- NOTE | 2023-04-24 18:50 | NUR ---
RN- CLOSING NOTES PATIENT ASLEEP IN BED, BREATHING EVEN AND NON LABORED WITH NO S/S OF DISTRESS. PATIENT IS COOPERATIVE/UNCOOPERATIVE AT TIMES, CONFUSED, DISORIENTED, ANXIOUS, ADMITTING TO VISUAL HALLUCINATIONS, AND RAMBLING TO HIMSELF. PATIENT IS MEDICATION COMPLIANT. DENIES SI/HI BUT IS CONFUSED AT THIS TIME. WILL CONTINUE TO MONITOR Q 15 MINUTES FOR SAFETY AND BEHAVIOR.
--- NOTE | 2023-04-24 19:30 | NUR ---
RN OPENING NOTES RECEIVED PATIENT WHILE SLEEPS IN BED. RESPONSIVE TO TACTILE STIMULI. NO PAIN NOTED. NO SOB NOTED. NO DISTRESS NOTED. FREQUENT CHECKS DONE. AT THIS TIME PATIENT SO SLEEPY NOT ABLE TO TALK. ALL SAFETY MEASURES IN PLACE. BED LOCKED IN THE LOWEST POSITION. TABLE IN EASY REACH. SIDE RAILS UP TIMES 2. BED ALARM ON. HOB ELEVATED FOR ASPIRATION PRECAUTION. WILL CONTINUE TO MONITOR EVERY 15 MIN FOR SAFETY.
[2023-04-24 20:40] VITALS: BP 108/68
--- NOTE | 2023-04-24 22:30 | NUR ---
RN NOTES URINE SAMPLE COLLECTED AND TOOK TO THE LAB IN PERSON AT 2230.
[2023-04-24] MEDS: OXCARBAZEPINE 150 MG TABLET PO SCH (22:58)
[2023-04-24] MEDS: DONEPEZIL 5 MG TABLET PO SCH (22:58)
[2023-04-24 23:43] LABS: BILIRUBIN,URINE 1+ (NEGATIVE); COLOR,URINE YELLOW (YELLOW); LEUKOCYTE ESTERASE ,URINE NEGATIVE (NEGATIVE); NITRITE, URINE NEGATIVE (NEGATIVE); PH,URINE 5.5 (5.0-8.0); PROTEIN,URINE NEGATIVE (NEGATIVE); UGLUCOSE NEGATIVE (NEGATIVE)
[2023-04-24 23:51] LABS: BACTERIA,URINE Rare /HPF (None Seen); SQUAMOUS EPITHELIAL CELL,UR Few /HPF (None Seen); WBC,URINE 0-2 /HPF (0-3)
--- NOTE | 2023-04-25 01:30 | NUR ---
RN NOTES EKG RESULTS REPORTED TO DR MANZANO. DR MANZANO WANTS TO REPORT THE RESULT ALSO TO THE HEALTHCARE INTERPRETER
--- NOTE | 2023-04-25 01:38 | NUR ---
RN NOTES. REPORTED THE EKG RESULT TO DAVONTE OSWALD WAREHOUSE SELECTOR MD. NEW ORDERS OF DIGOXIN LEVEL AT 0138 AND CARDIOLOGY CONSULT AT 0141 NOTED AND CARRIED OUT.
--- NOTE | 2023-04-25 06:50 | NUR ---
RN CLOSING NOTES PATIENT SLEEPS IN BED. RESPONSIVE TO TACTILE STIMULI. NO PAIN NOTED. NO SOB NOTED. NO DISTRESS NOTED. FREQUENT CHECKS DONE. ALL DUE MEDS GIVEN ORDERED. PATIENT ABLE TO SWALLOW CRUSHED MEDS WITH APPLE SAUCE AND WATER. ALL SAFETY MEASURES IN PLACE. BED LOCKED IN THE LOWEST POSITION. TABLE IN EASY REACH. SIDE RAILS UP TIMES 2. BED ALARM ON. HOB ELEVATED FOR ASPIRATION PRECAUTION. WILL ENDORSE FOR RHETT AND FOLLOW UP WITH THE CARDIOLOGY CONSULT AND DIGOXIN LAB LEVEL TO INCOMING SHIFT NURSE.
[2023-04-25 08:00] VITALS: BP 127/87
[2023-04-25] MEDS: risperiDONE 1 MG TABLET PO SCH ×4 (08:00→16:31)
[2023-04-25] MEDS: Z GUARD REMEDY 4 OZ OINT TP PRN (08:14)
[2023-04-25] MEDS: ENSURE ENLIVE CHOC 237 ML CAN PO SCH ×2 (08:15→17:56)
[2023-04-25] MEDS: DIVALPROEX SODIUM 125 MG CAP.SPRINK PO SCH (08:42)
[2023-04-25] MEDS: ACETAMINOPHEN 325 MG TABLET PO SCH ×3 (08:42→16:31)
[2023-04-25] MEDS: METOPROLOL SUCCINATE 50 MG TAB.SR.24H PO SCH (08:43)
[2023-04-25] MEDS: DIGOXIN 0.125 MG TABLET PO SCH (08:43)
[2023-04-25] MEDS: CLOTRIMAZOLE 1% 15 GM TUBE TP SCH ×2 (09:00→16:31)
--- NOTE | 2023-04-25 14:36 | NUR ---
SW Friend Contact: SW confirmed with pt's friend Kalin ([phone]) who stated that pt will reside with him located at [address] [place] [address] and he will pick him up 04/27 at 1PM.
[2023-04-25 16:00] VITALS: BP 100/54
[2023-04-25] MEDS ORDERED: risperiDONE 1 MG TABLET PO SCH (17:00)
[2023-04-25 17:56] LABS: ABG BASE EXCESS 2.4 mmol/L; ABG OXYGEN SATURATION 94.4 % (92.0-98.5); ABG PCO2 38.7 mmHg (35.0-45.0); ABG PH 7.451 (7.350-7.450); ABG PO2 69.2 mmHg (75.0-100.0); AaDO2 34.2 mmHg; COHb 1.2 % (0.5-1.5); MetHb 0.2 % (0.0-1.5); O2Hb 93.1 % (94.0-97.0); SITE, ABG Right Radial; VENT MODE, BG ROOM AIR
[2023-04-25] MEDS: RIVAROXABAN 10 MG TABLET PO SCH (17:56)
[2023-04-25] MEDS: ATORVASTATIN 40 MG TABLET PO SCH (17:56)
[2023-04-25 19:00] LABS: SERUM AMMONIA < 10 umol/L (11-32)
--- NOTE | 2023-04-25 19:05 | NUR ---
GPS RN NOTES: CHARGE NURSE FROM DAY SHIFT RECEIVED ORDERS FROM DR. MANZANO TO TRANSFER PATIENT TO MEDICAL FLOOR AND DR. MANZANO CONTACTED DR. MARTINEZ AND WAS AWARE OF PATIENT'S CURRENT CONDITION DUE TO PATIENT IS LETHARGIC/SEDATED. DR. MANZANO ORDERED TO DISCHARGE PATIENT TO MEDICAL FLOOR FOR FURTHER EVALUATION AND DISCONTINUE HOLD AND HOLD ALL PSYCH MEDS UNTIL FURTHER ORDER. ALL EXIT CARE PAPERWORK DONE. 1920- SPOKE TO CAPSULE MACHINE OPERATOR VELMA NOTIFIED OF PT'S TRANSFER AND TO PROVIDE ROOM NO. IN MEDICAL FLOOR. AWAITING CALL BACK. 1958 - CAPSULE MACHINE OPERATOR KARLA GAVE PT'S ROOM NO. IN 326-2. 1999 - REPORT GIVEN TO YOHANA PONCE. 2004 - PATIENT LEFT IN THE UNIT VIA GURNEY ACCOMPANIED BY 2RN'S. BELONGING SIGNED AND RECEIVED BY STAFF ROSARIO MULLER.
--- NOTE | 2023-04-25 20:30 | NUR ---
GPS RN NOTES: DISCHARGE NOTES: CHARGE NURSE FROM DAY SHIFT RECEIVED ORDERS FROM DR. MANZANO TO TRANSFER PATIENT TO MEDICAL FLOOR AND DR. MANZANO CONTACTED DR. MARTINEZ AND WAS AWARE OF PATIENT'S CURRENT CONDITION DUE TO PATIENT IS LETHARGIC/SEDATED. DR. MANZANO ORDERED TO DISCHARGE PATIENT TO MEDICAL FLOOR FOR FURTHER EVALUATION AND DISCONTINUE HOLD AND HOLD ALL PSYCH MEDS UNTIL FURTHER ORDER. ALL EXIT CARE PAPERWORK DONE. 1920- SPOKE TO MANAGER POKER VELMA NOTIFIED OF PT'S TRANSFER AND TO PROVIDE ROOM NO. IN MEDICAL FLOOR. AWAITING CALL BACK. 1958 - MANAGER POKER KARLA GAVE PT'S ROOM NO. IN 326-2. 1999 - REPORT GIVEN TO YOHANA PONCE. 2004 - PATIENT LEFT IN THE UNIT VIA GURNEY ACCOMPANIED BY CAREY. BELONGING SIGNED AND RECEIVED BY STAFF ROSARIO MULLER. 2029 - NASIR STRANGE () NOTIFIED OF PT'S TRANSFER TO MEDICAL FLOOR Addendum: 04/25/23 at 2200 by RIOS DENNY RN 2034 - EPIC ON-CALL EMMY ARAUZ NOTIFIED OF STAT CHEST X-RAY.
[2023-04-25] MEDS ORDERED: LACT-246 PO (20:52)
[2023-04-25] MEDS ORDERED: MAGN400O6 PO (20:52)
[2023-04-25] MEDS ORDERED: CLOT15CR5 TP (20:52)
[2023-04-25] MEDS ORDERED: OXCARBAZEPINE 150 MG TABLET PO SCH (22:00)
--- NOTE | 2023-04-26 08:12 | NUR ---
HAIDER Transfer: Patient transferred to the medical floor due to Lethargic. Dr. Michaud continues 5250 hold. Patient currently resides at [facility] located at [address] [place] [address]; ([phone]). HAIDER spoke with Annia branch ([phone]) who stated that pt is welcomed back when stable they would just need to re-assess pt before pt returning back. Patient's Tiffanie ([phone]) is involved in care. Addendum: 04/26/23 at [address] Michaud discontinued the hold
[2023-04-26] MEDS ORDERED: CLOT15CR27 TP (10:07)
[2023-04-26] MEDS ORDERED: TEMA7.5C12 PO (10:07)
[2023-04-26] MEDS ORDERED: ALLA266C2 TP (10:07)
[2023-04-26] MEDS ORDERED: LORA-259 PO (10:07)
[2023-04-26] MEDS ORDERED: ACET-868 PO (10:07)
[2023-04-26] MEDS ORDERED: MAG30ORA PO (10:07)
[2023-04-26] MEDS ORDERED: RISP0.2515 PO (10:08)
== END 2023-04-25 20:30 | disposition short-term general hospital (02) | DRG 885 ==
LOC: ER 15:58 → GPS 21:22
PROVIDERS: ADMIT Psychiatry & Neurology Psychosomatic Medicine; ATTEND Nurse Practitioner Acute Care
DX: F29 Unspecified psychosis not due to a substance or known physiological condition (principal); G93.41 Metabolic encephalopathy; I48.20 Chronic atrial fibrillation, unspecified; F03.911 Unspecified dementia, unspecified severity, with agitation; F31.9 Bipolar disorder, unspecified; Z79.01 Long term (current) use of anticoagulants; E78.5 Hyperlipidemia, unspecified; I25.10 Atherosclerotic heart disease of native coronary artery without angina pectoris; I10 Essential (primary) hypertension; R53.83 Other fatigue
CPT/HCPCS: 36415; 36600; 70450-TC; 71045-TC; 76856-TC; 80048-TC; 80053-TC; 80061-TC; 80076-TC; 80162-TC; 80164-TC; 81001; 82140-TC; 82803-TC; 82962-TC; 83605-TC; 84443-TC; 84484-TC; 85025-TC; 87081-TC; 87086-TC; 92526; 92611-TC; 93970-TC; 97112-TC; 97116-TC; 97530-TC; A4349; C9803; G0480; J2060; J3490

== ENCOUNTER 2023-04-25 20:36 | Inpatient (IN) | payer MEDICARE ==
[~2023-04-25] VITALS: Ht 185.4 cm; Wt 84.4 kg
[2023-04-25 20:30] VITALS: BP 132/81
[~2023-04-25 20:36] MED LIST: ACET-868 PO; ATOR40TA PO; DIGO125T PO; DONE10TA44 PO; IBUP-1953 PO; LEVO500T90 PO; LIDO1ADH82 TP; METO-357 PO; MYRBETRIQ PO; OXCA150T13 PO; RIVA10TA PO; SERT100T12 PO
[2023-04-25] MEDS ORDERED: LACT-246 PO (20:52)
[2023-04-25] MEDS ORDERED: MAGN400O6 PO (20:52)
[2023-04-25] MEDS ORDERED: CLOT15CR5 TP (20:52)
--- NOTE | 2023-04-25 21:00 | NUR ---
WAGE ADJUSTER ADMITTING NOTE PATIENT WAS TRANSFERRED FROM [facility] TO [facility] AT 2020H; PATIENT IS A/O X 0, UNABLE TO SPEAK, SPONTANEOUSLY OPENS EYE; ON ROOM AIR WHEN TRANSFERRED BUT HOOKED TO 2LPM OXYGEN VIA NASAL CANNULA, TOLERATING WELL AND NO S/S OF DISTRESS NOTED; NO IV ACCESS; SKIN ASSESSMENT WAS DONE, PHOTOGRAPHED BRUISES AND SCABS, INSERTED INTO CHARTS; PATIENT'S BELONGINGS ACCOUNTED FOR; VITAL SIGNS TAKEN AND RECORDED; SAFETY MEASURES IMPLEMENTED, BED LOCKED IN LOWEST POSITION, SIDE RAILS UP X 4, CALL LIGHT WITHIN REACH; WILL CONTINUE TO MONITOR
[2023-04-25] MEDS ORDERED: CEFTRIAXONE 1GM BAG (ER ONLY) 50 ML IV ONE (21:51)
[2023-04-25] MEDS ORDERED: Z GUARD REMEDY 4 OZ OINT TP PRN (22:00)
[2023-04-25] MEDS ORDERED: ONDANSETRON HCL/PF 4 MG/2 ML VIAL IVP PRN (22:00)
[2023-04-25] MEDS ORDERED: ZOLPIDEM TARTRATE 5 MG TABLET PO PRN (22:00)
[2023-04-25] MEDS ORDERED: CEFTRIAXONE 1 G in IV D5W 50 ML IV SCH (22:00)
[2023-04-25] MEDS ORDERED: MAG HYDROX/AL HYDROX/SIMETH 30 ML UDC PO PRN (22:00)
[2023-04-25] MEDS ORDERED: ACETAMINOPHEN 325 MG TABLET PO PRN (22:00)
[2023-04-25] MEDS ORDERED: MAGNESIUM HYDROXIDE 30 ML UDC PO PRN (22:00)
--- NOTE | 2023-04-25 22:00 | NUR ---
PRINTER MAINTAINER NOTE INSERTED IV LINE AT LEFT HAND G# 22, INTACT AND PATENT, FLUSHING WELL AND INFUSING WITH NORMAL SALINE AT 75 ML/HR, NO INFILTRATION AND PHLEBITIS NOTED
[2023-04-25] MEDS: IV NS 0.9% 1,000 ML IV PRN (22:01)
[2023-04-25] MEDS ORDERED: AZITHROMYCIN 500 MG VIAL ONE (22:38)
[2023-04-25] MEDS: AZITHROMYCIN 500 MG in IV D5W 250 ML IV SCH (22:49)
[2023-04-26] VITALS: BP 98/62
[2023-04-26] MEDS ORDERED: MAGNESIUM HYDROXIDE 30 ML UDC PO PRN
[2023-04-26 04:00] VITALS: BP_SYST 125; BP_SYST 130; BP_DIAS 74; BP_DIAS 87
[2023-04-26 05:19] LABS: ABG BASE EXCESS 2.1 mmol/L; ABG OXYGEN SATURATION 96.2 % (92.0-98.5); ABG PCO2 35.1 mmHg (35.0-45.0); ABG PH 7.476 (7.350-7.450); ABG PO2 82.6 mmHg (75.0-100.0); AaDO2 25.1 mmHg; MetHb 0.4 % (0.0-1.5); O2Hb 94.9 % (94.0-97.0); SITE, ABG Right Radial; VENT MODE, BG Room Air
[2023-04-26 06:30] LABS: BASOPHILS % (AUTO) 0.5 % (0.0-2.0); EOSINOPHILS % (AUTO) 1.6 % (0.0-6.0); HEMATOCRIT 42 % (39-51); HEMOGLOBIN 13.5 g/dL (13.5-17.5); LYMPHOCYTES # (AUTO) 2.2 K/uL (0.8-4.8); LYMPHOCYTES % (AUTO) 30.3 % (20.0-44.0); MEAN CORPUSCULAR HGB CONC 32 g/dl (31.0-36.0); MEAN CORPUSCULAR VOLUME 87 fL (80-96); MONOCYTES # (AUTO) 0.7 K/uL (0.1-1.30); MONOCYTES % (AUTO) 9.5 % (2.0-12.0); NEUTROPHILS # (AUTO) 4.2 K/uL (1.8-8.9); NEUTROPHILS % (AUTO) 58.1 % (43.0-81.0); PLATELET COUNT (AUTO) 94 K/uL (150-450); RED BLOOD CELL COUNT(AUTO) 4.83 MIL/uL (4.5-6.0); WHITE BLOOD COUNT (AUTO) 7.3 K/uL (4.3-11.0)
--- NOTE | 2023-04-26 06:53 | NUR ---
APPRAISER BOATS AND MARINE CLOSING NOTE PATIENT RESTING IN BED, A/O X 1, HOOKED TO 2LPM OXYGEN VIA NASAL CANNULA, TOLERATING WELL AND WITH NO S/S OF DISTRESS NOTED; HOOKED TO TELE MONITORING CURRENTLY READING CONTROLLED AFIB 90S BPM; ADMINISTERED MEDICATIONS PRESCRIBED; PATIENT'S NEEDS ATTENDED; MONITORED PATIENT ACCORDINGLY; SAFETY MEASURES IMPLEMENTED, BED LOCKED IN LOWEST POSITION, SIDE RAILS UP X 4, CALL LIGHT WITHIN REACH; WILL ENDORSE TO AM NURSE FOR RHETT.
[2023-04-26 07:37] LABS: ALBUMIN 3.1 g/dL (3.4-5.0); BILIRUBIN,TOTAL 0.7 mg/dL (0.2-1.0); CALCIUM, SERUM 9.7 mg/dL (8.5-10.1); CREATININE 0.6 mg/dL (0.6-1.3); MAGNESIUM 2.1 mg/dL (1.8-2.4); POTASSIUM 3.5 mmol/L (3.5-5.1); TOTAL PROTEIN, SERUM 6.6 g/dL (6.4-8.2)
--- NOTE | 2023-04-26 07:42 | NUR ---
ASSURANCE ANALYST OPENING NOTE (DAY SHIFT) PATIENT RESTING IN BED, A/O X 1, RECEIVING OXYGEN @ 2 LPM VIA NASAL CANNULA, TOLERATING WELL AND WITH NO S/S OF DISTRESS NOTED. TELE MONITORING CURRENTLY SHOWING CONTROLLED AFIB 90S TO 100S BPM. SAFETY MEASURES IMPLEMENTED, BED LOCKED IN LOWEST POSITION, SIDE RAILS UP X 3, CALL LIGHT WITHIN REACH. PATIENT HAS SCDs TO LOWER LEGS VTE PROPHYLAXIS. wILL CONTINUE TO MONITOR AND CARE FOR PATIENT PER MD'S POC.
[2023-04-26 08:00] VITALS: BP 99/58
--- NOTE | 2023-04-26 08:13 | NUR ---
HAIDER Transfer: Patient transferred to the medical floor due to Lethargic. Dr. Michaud continues 5250 hold. Patient currently resides at [facility] located at [address] [place] [address]; ([phone]). HAIDER spoke with Annia branch ([phone]) who stated that pt is welcomed back when stable they would just need to re-assess pt before pt returning back. Patient's Tiffanie ([phone]) is involved in care. Addendum: 04/26/23 at [address] Michaud discontinued the hold
[2023-04-26] MEDS: ENSURE ENLIVE 237 ML LIQUID (VANILLA) PO SCH ×2 (09:00→18:26)
[2023-04-26] MEDS ORDERED: Medication Not On Formulary EA ([Myrbetriq] 50 MG) PO SCH (09:00)
[2023-04-26] MEDS: METOPROLOL SUCCINATE 50 MG TAB.SR.24H PO SCH (09:00)
[2023-04-26] MEDS ORDERED: CLOT15CR27 TP (10:07)
[2023-04-26] MEDS ORDERED: ALLA266C2 TP (10:07)
[2023-04-26] MEDS ORDERED: MAG30ORA PO (10:07)
[2023-04-26] MEDS ORDERED: ACET-868 PO (10:07)
[2023-04-26] MEDS ORDERED: TEMA7.5C12 PO (10:07)
[2023-04-26] MEDS ORDERED: LORA-259 PO (10:07)
[2023-04-26] MEDS ORDERED: RISP0.2515 PO (10:08)
[2023-04-26] MEDS: DIGOXIN 0.125 MG TABLET PO SCH (11:05)
[2023-04-26] MEDS: ACETAMINOPHEN 325 MG TABLET PO SCH ×3 (11:05→18:27)
[2023-04-26] MEDS: LIDOCAINE 5% (PATCH) 1 EA PATCH TP SCH (11:06)
[2023-04-26] MEDS: RIVAROXABAN 10 MG TABLET PO SCH (11:06)
[2023-04-26] MEDS: CLOTRIMAZOLE/BETAMETASONE DIPROPIONATE 15 GM TUBE TP SCH ×2 (11:07→18:27)
[2023-04-26 12:00] VITALS: BP 110/65
[2023-04-26 16:00] VITALS: BP 100/57
[2023-04-26 17:03] LABS: EOSINOPHILS % (MANUAL) 1 % (0-4); LYMPHOCYTES % (MANUAL) 32 % (16-48); MONOCYTES % (MANUAL) 6 % (0-11.0); NEUTROPHILS % (MANUAL) 61 (42-76)
[2023-04-26] MEDS: ATORVASTATIN 40 MG TABLET PO SCH (18:27)
--- NOTE | 2023-04-26 18:59 | NUR ---
CLOTH WINDING SUPERVISOR CLOSING NOTE (DAY SHIFT) PATIENT RESTING IN BED, A/O X 1, ON 2 LPM OXYGEN VIA NASAL CANNULA, TOLERATING WELL AND WITH NO S/S OF DISTRESS NOTED. TELE MONITORING CURRENTLY READING CONTROLLED AFIB 90S BPM. ADMINISTERED MEDICATIONS PRESCRIBED. PATIENT'S NEEDS ATTENDED. SAFETY MEASURES IMPLEMENTED: BED LOCKED IN LOWEST POSITION; SIDE RAILS UP X 4; CALL LIGHT WITHIN REACH. WILL ENDORSE TO NIGHT NURSE FOR RHETT.
--- NOTE | 2023-04-26 19:00 | NUR ---
RN opening notes Pt is sitting in bed comfortably watching TV. Pt is alert and orientedX1 with episode of confusion. Reality orientation provided. On room air. No SOB. No S/S of distress noted. Tele monitor showed controlled afib hr at 85. IV site at L hand# 22 is clean, intact and flushes well. safety precautions is maintained. bed at low position, brakes locked, side rails upX3, hob elevated, bed alarm is on and call light is within reach. Will continue to monitor.
[2023-04-26 20:00] VITALS: BP 118/68
[2023-04-26] MEDS: AZITHROMYCIN 500 MG in IV D5W 250 ML IV SCH (20:11)
[2023-04-26] MEDS: CEFTRIAXONE 1 G in IV D5W 50 ML IV SCH (21:17)
[2023-04-26] MEDS: DONEPEZIL 5 MG TABLET PO SCH (21:17)
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
--- NOTE | 2023-04-26 22:21 | NUR ---
RN notes Administered Zyprexa/IM/ one time per MD ordered. Pt still combative, screaming, kicking, yelling and grabbing staffs. Pt is not following directions, aggresive and combative. Pt removing IV, heart monitor. Security at the bed side. Charge nurse at the bedside. Will continue to monitor.
[2023-04-26] MEDS ORDERED: OLANZAPINE 10 MG VIAL IM ONE (22:30)
[2023-04-27] MEDS: IV NS 0.9% 1,000 ML IV PRN ×2 (00:50→21:44)
[2023-04-27 04:00] VITALS: BP 119/67
--- NOTE | 2023-04-27 06:27 | NUR ---
RN closing notes Pt is resting in bed comfortably. Pt is alert and orientedX1 with episode of confusion. On room air. No SOB. No S/S of distress noted. Tele monitor showed uncontrolled afib hr at 112. Routine meds were given as ordered. IV site at R hand# 24 is clean, intact and infuising well NS@ 75 ml/hr. Kept Pt clean, dry and comfortbale. safety precautions is maintained. bed at low position, brakes locked, side rails upX3, hob elevated, bed alarm is on and call light is within reach. Will endorse to am nurse for RHETT.
[2023-04-27 06:42] LABS: CALCIUM, SERUM 9.4 mg/dL (8.5-10.1); CREATININE 0.6 mg/dL (0.6-1.3); MAGNESIUM 1.9 mg/dL (1.8-2.4); POTASSIUM 3.6 mmol/L (3.5-5.1)
--- NOTE | 2023-04-27 07:14 | NUR ---
BILLING REPRESENTATIVE OPENING NOTES RECEIVED PATIENT IN BED WITH HOB ELEVATED, PT IS AWAKE, ALERT ORIENTED X1, CONFUSED. ON ROOM AIR BREATHING WITHOUT ANY DIFFICULTY, NO ACUTE DISTRESS NOTED. ON TELEMONITORING SHOWING UNCONTROLLED AFIB, TACHYCARDIC AT 110 BPM. FLACC SCORE 0. IV ACCESS ON RIGHT HAND G#22, CLEAN, PATENT AND INFUSING NS @75 ML/HR. SCD PUMP ON BILATERAL LEGS APPLIED. SAFETY AND ASPIRATION PRECAUTION MEASURES IN PLACE: BED IN LOWEST AND IN LOCKED POSITION, SIDE RAILS UP X3, HOB ELEVATED, ASPIRATION PRECAUTION SIGN UP, BED ALARM ON, CALL LIGHT AND TRAY TABLE WITHIN EASY REACH. WILL CONTINUE TO MONITOR.
[2023-04-27 07:30] VITALS: BP 112/73
[2023-04-27] MEDS: ACETAMINOPHEN 325 MG TABLET PO SCH ×3 (08:26→16:52)
[2023-04-27] MEDS: ENSURE ENLIVE 237 ML LIQUID (VANILLA) PO SCH ×2 (08:27→16:53)
[2023-04-27] MEDS: DIGOXIN 0.125 MG TABLET PO SCH (08:27)
[2023-04-27] MEDS: LIDOCAINE 5% (PATCH) 1 EA PATCH TP SCH ×2 (08:29→09:00)
[2023-04-27] MEDS: METOPROLOL SUCCINATE 50 MG TAB.SR.24H PO SCH (08:29)
[2023-04-27] MEDS: CLOTRIMAZOLE/BETAMETASONE DIPROPIONATE 15 GM TUBE TP SCH ×2 (08:30→16:53)
[2023-04-27] MEDS: RIVAROXABAN 10 MG TABLET PO SCH (08:30)
[2023-04-27] MEDS ORDERED: risperiDONE 1 MG TABLET PO SCH (09:00)
[2023-04-27 11:30] VITALS: BP 108/79
--- NOTE | 2023-04-27 11:36 | NUR ---
RN NOTES - PATIENT PULLED HIS IV LINE RIGHT HAND G#22, BLEEDING STOPPED, PRESSURE GAUZE APPLIED. PATIENT IS CONFUSED, DOESN'T FOLLOW COMMANDS. MD HAS BEEN INFORMED, AWAITING ORDERS.
--- NOTE | 2023-04-27 11:56 | NUR ---
RN NOTES - DR HERNANDEZ ORDERED MITTENS ON BOTH HANDS FOR PATIENT HE IS PULLING IV LINES REPEATEDLY AND TELEMETRY LEADS. CONSTANT CHECK FOR HYDRATION AND CIRCULATION WILL BE DONE. WILL CONTINUE TO MONITOR FOR SAFETY.
--- NOTE | 2023-04-27 13:52 | NUR ---
RN NOTES - IV ACCESS STARTED ON LEFT FOREARM G#22, PATENT AND FLUSHING WELL. IV RUNNING NS @75 ML/HR
[2023-04-27 16:00] VITALS: BP 120/69
[2023-04-27] MEDS: risperiDONE 1 MG TABLET PO SCH ×2 (16:53→21:09)
[2023-04-27] MEDS: ATORVASTATIN 40 MG TABLET PO SCH (17:19)
--- NOTE | 2023-04-27 18:55 | NUR ---
TOP KNITTER CLOSING NOTES PATIENT IN BED WITH HOB ELEVATED, AWAKE, AOX1, CONFUSED, SPEAKING BUT HAS FLIGHT OF IDEAS, ON ROOM AIR BREATHING WITHOUT ANY DIFFICULTY, NO ACUTE RESPIRATORY DISTRESS NOTED. ON TELEMONITORING SHOWING CONTROLLED AFIB AT 94 BPM. STILL WITH FLACC SCORE 0. IV ACCESS ON LEFT FOREARM G#22, CLEAN, PATENT AND INFUSING NS @75 ML/HR. STILL WITH SCD PUMPS ON BOTH LEGS. ALL DUE MEDS GIVEN, ALL NEEDS MET. PATIENT DIDN'T HAVE ANY EPISODES OF COMBATIVE BEHAVIOR DURING MY SHIFT. SAFETY AND ASPIRATION PRECAUTION MEASURES MAINTAINED: BED IN LOWEST AND IN LOCKED POSITION, SIDE RAILS UP X3, HOB ELEVATED, ASPIRATION PRECAUTION SIGN UP, BED ALARM ON, CALL LIGHT AND TRAY TABLE WITHIN EASY REACH. WILL ENDORSE TO COMMERCIAL LOAN COORDINATOR NURSE.
--- NOTE | 2023-04-27 19:05 | NUR ---
EMPLOYMENT LAW ATTORNEY OPENING NOTES RECEIVED PATIENT IN BED WITH HOB ELEVATED, PT IS AWAKE, ALERT AND ORIENTED, AO X1. HE IS VERY CONFUSED AND TALKING TO HIMSELF. PT IS ON ROOM AIR; TOLERATED WELL. NO S/S OF DISTRESS OR SOB. 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 PT DOES NOT SHOW ANY S/S OF HAVING PAIN. IV ACCESS IS AT HIS L FA, #22G, INFUSING NS @75 ML/HR. IV SITE IS PATENT AND INTACT. SAFETY AND ASPIRATION PRECAUTION MEASURES IN PLACE: BED IN LOWEST AND LOCKED POSITION, SIDE RAILS UP X3, HOB ELEVATED AT 45 DEGREE WITH ASPIRATION PRECAUTION SIGN POSTED ON THE WALL. BED ALARM IS ON, CALL LIGHT AND TRAY TABLE WITHIN EASY REACH. WILL CONTINUE TO MONITOR THE PT AND PROVIDE THE CARE PT NEEDS..
[2023-04-27 20:00] VITALS: BP 105/60
[2023-04-27] MEDS: AZITHROMYCIN 500 MG in IV D5W 250 ML IV SCH (21:05)
[2023-04-27] MEDS: DONEPEZIL 5 MG TABLET PO SCH (21:09)
[2023-04-27] MEDS: CEFTRIAXONE 1 G in IV D5W 50 ML IV SCH (21:56)
[2023-04-28] VITALS: BP 117/58
[2023-04-28 04:00] VITALS: BP 131/74
[2023-04-28 06:18] LABS: BASOPHILS % (AUTO) 0.7 % (0.0-2.0); EOSINOPHILS % (AUTO) 2.9 % (0.0-6.0); HEMATOCRIT 38 % (39-51); HEMOGLOBIN 12.7 g/dL (13.5-17.5); LYMPHOCYTES % (AUTO) 43.1 % (20.0-44.0); MEAN CORPUSCULAR HGB CONC 33 g/dl (31.0-36.0); MEAN CORPUSCULAR VOLUME 86 fL (80-96); MONOCYTES # (AUTO) 0.4 K/uL (0.1-1.30); MONOCYTES % (AUTO) 9.5 % (2.0-12.0); NEUTROPHILS % (AUTO) 43.8 % (43.0-81.0); PLATELET COUNT (AUTO) 91 K/uL (150-450); RED BLOOD CELL COUNT(AUTO) 4.43 MIL/uL (4.5-6.0); WHITE BLOOD COUNT (AUTO) 4.6 K/uL (4.3-11.0)
[2023-04-28 06:33] LABS: ALANINE AMINOTRANSFERASE 17 U/L (12-78); ALBUMIN 2.9 g/dL (3.4-5.0); ALKALINE PHOSPHATASE 71 U/L (46-116); ASPARTATE AMINOTRANSFERASE 19 U/L (15-37); BILIRUBIN,TOTAL 0.5 mg/dL (0.2-1.0); CALCIUM, SERUM 9.1 mg/dL (8.5-10.1); CARBON DIOXIDE 28 mmol/L (21-32); CHLORIDE 109 mmol/L (98-107); CREATININE 0.5 mg/dL (0.6-1.3); GLUCOSE 90 mg/dL (74-106); MAGNESIUM 1.9 mg/dL (1.8-2.4); PHOSPHORUS 3.7 mg/dL (2.5-4.9); POTASSIUM 3.6 mmol/L (3.5-5.1); SODIUM SERUM 142 mmol/L (136-145); TOTAL PROTEIN, SERUM 6.1 g/dL (6.4-8.2); UREA NITROGEN, BLOOD 13 mg/dL (7-18)
--- NOTE | 2023-04-28 06:42 | NUR ---
PLANT ATTENDANT CLOSING NOTES PATIENT IS RESTING IN BED WITH HOB ELEVATED. PT IS AWAKE, ALERT AND ORIENTED, AO X1. HE IS VERY CONFUSED, AGITATED, AND TALKING TO HIMSELF. PT IS ON ROOM AIR; TOLERATED WELL. NO S/S OF DISTRESS OR SOB. 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 PT DOES NOT SHOW ANY S/S OF HAVING PAIN. IV ACCESS IS AT HIS L FA, #22G, INFUSING NS @75 ML/HR. IV SITE IS PATENT AND INTACT. SAFETY AND ASPIRATION PRECAUTION MEASURES IN PLACE: BED IN LOWEST AND LOCKED POSITION, SIDE RAILS UP X3, HOB ELEVATED AT 45 DEGREE WITH ASPIRATION PRECAUTION SIGN POSTED ON THE WALL. BED ALARM IS ON, CALL LIGHT AND TRAY TABLE WITHIN EASY REACH. WILL ENDORSE NEXT SHIFT NURSE FOR CONTINUING PT CARE.
--- NOTE | 2023-04-28 07:50 | NUR ---
MANAGER UNIVERSITY OPENING NOTE (DAY SHIFT) RECEIVED PATIENT IN BED WITH HOB ELEVATED, PT IS AWAKE, ALERT ORIENTED X 1, CONFUSED. ON ROOM AIR BREATHING WITHOUT ANY DIFFICULTY, NO ACUTE DISTRESS NOTED. ON TELEMONITORING SHOWING CONTROLLED AFIB, TACHYCARDIC AT 106 BPM. FLACC SCORE 0. IV ACCESS ON RIGHT HAND G#22, CLEAN, PATENT AND INFUSING NS @75 ML/HR. SCD PUMP ON BILATERAL LEGS APPLIED. SAFETY AND ASPIRATION PRECAUTION MEASURES IN PLACE: BED IN LOWEST AND IN LOCKED POSITION, SIDE RAILS UP X3, HOB ELEVATED, ASPIRATION PRECAUTION SIGN UP, BED ALARM ON, CALL LIGHT AND TRAY TABLE WITHIN EASY REACH. WILL CONTINUE TO MONITOR AND CARE FOR PATIENT PER HOSPITALIST'S POC.
[2023-04-28 08:00] VITALS: BP 107/80
[2023-04-28] MEDS: ENSURE ENLIVE 237 ML LIQUID (VANILLA) PO SCH ×2 (09:00→18:07)
[2023-04-28] MEDS: CLOTRIMAZOLE/BETAMETASONE DIPROPIONATE 15 GM TUBE TP SCH ×2 (10:28→18:14)
[2023-04-28] MEDS: METOPROLOL SUCCINATE 50 MG TAB.SR.24H PO SCH (10:29)
[2023-04-28] MEDS: DIGOXIN 0.125 MG TABLET PO SCH (10:29)
[2023-04-28] MEDS: risperiDONE 1 MG TABLET PO SCH ×3 (10:30→21:22)
[2023-04-28] MEDS: ACETAMINOPHEN 325 MG TABLET PO SCH ×3 (10:31→18:12)
[2023-04-28] MEDS: RIVAROXABAN 10 MG TABLET PO SCH (10:31)
[2023-04-28] MEDS: LIDOCAINE 5% (PATCH) 1 EA PATCH TP SCH (10:32)
[2023-04-28 12:00] VITALS: BP 98/46
[2023-04-28 16:00] VITALS: BP 99/62
[2023-04-28] MEDS: ATORVASTATIN 40 MG TABLET PO SCH (18:14)
--- NOTE | 2023-04-28 18:52 | NUR ---
SR. LOGISTICS ANALYST CLOSING NOTE (DAY SHIFT) PATIENT IN BED WITH HOB ELEVATED, AWAKE, ALERT, ORIENTED X 1, CONFUSED, SPEAKING BUT HAS FLIGHT OF IDEAS, ON ROOM AIR BREATHING WITHOUT ANY DIFFICULTY, NO ACUTE RESPIRATORY DISTRESS NOTED. ON TELE MONITORING SHOWING CONTROLLED AFIB FLUCTUATING BETWEEN 90s TO 100s BPM. STILL WITH FLACC SCORE 0. IV ACCESS ON LEFT FOREARM G#22, CLEAN, PATENT AND INFUSING NS @75 ML/HR. STILL WITH SCD PUMPS ON BOTH LEGS. ALL DUE MEDS GIVEN, ALL NEEDS MET. PATIENT DIDN'T HAVE ANY EPISODES OF COMBATIVE BEHAVIOR DURING THE SHIFT. SAFETY AND ASPIRATION PRECAUTION MEASURES MAINTAINED: BED IN LOWEST AND IN LOCKED POSITION, SIDE RAILS UP X 3, HOB ELEVATED, ASPIRATION PRECAUTION SIGN UP, BED ALARM ON, CALL LIGHT AND TRAY TABLE WITHIN EASY REACH. WILL ENDORSE TO POWERHOUSE TENDER NURSE.
--- NOTE | 2023-04-28 19:15 | NUR ---
APPLIED STATISTICIAN OPENING NOTES PATIENT IS SITTING IN BED WITH HOB ELEVATED AT 90 DEGREE. PT IS AWAKE, AO X1. HE IS VERY CONFUSED AND TALKING TO HIMSELF. PT IS ON ROOM AIR; TOLERATED WELL. NO S/S OF DISTRESS OR SOB. 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 PT DOES NOT SHOW ANY S/S OF HAVING PAIN. IV ACCESS IS AT HIS L FA, #22G, INFUSING NS @75 ML/HR. IV SITE IS PATENT AND INTACT. SAFETY AND ASPIRATION PRECAUTION MEASURES IN PLACE: BED IN LOWEST AND LOCKED POSITION, SIDE RAILS UP X3. PT IS ON ASPIRATION PRECAUTION; AND THE SIGN IS POSTED ON THE WALL. BED ALARM IS ON, CALL LIGHT AND TRAY TABLE WITHIN EASY REACH. WILL CONTINUE TO MONITOR THE PT AND PROVIDE THE CARE PT NEEDS.
[2023-04-28 20:00] VITALS: BP 109/55
[2023-04-28] MEDS: DONEPEZIL 5 MG TABLET PO SCH (21:21)
[2023-04-29] VITALS: BP_SYST 132; BP_SYST 96; BP_DIAS 63; BP_DIAS 95
[2023-04-29] MEDS: IV NS 0.9% 1,000 ML IV PRN ×2 (00:50→13:28)
[2023-04-29 01:13] VITALS: BP 145/67
[2023-04-29 04:00] VITALS: BP 106/75
--- NOTE | 2023-04-29 06:50 | NUR ---
APPLICATIONS TESTER CLOSING NOTES PATIENT IS SLEEPING IN BED WITH HOB ELEVATED. PT IS AO X 1. HE IS VERY CONFUSED, AGITATED, AND TALKING TO HIMSELF. PT IS ON ROOM AIR; TOLERATED WELL. NO S/S OF DISTRESS OR SOB. 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 PT DOES NOT SHOW ANY S/S OF HAVING PAIN. IV ACCESS IS AT HIS L FA, #22G, INFUSING NS @ 75 ML/HR. IV SITE IS PATENT AND INTACT. SAFETY AND ASPIRATION PRECAUTION MEASURES ARE IN PLACE: BED IN LOWEST AND LOCKED POSITION, SIDE RAILS UP X3, HOB ELEVATED AT 45 DEGREE WITH ASPIRATION PRECAUTION SIGN POSTED ON THE WALL. BED ALARM IS ON, CALL LIGHT AND TRAY TABLE WITHIN EASY REACH. WILL ENDORSE NEXT SHIFT NURSE FOR CONTINUING PT CARE.
--- NOTE | 2023-04-29 07:41 | NUR ---
CLAY CARMAN OPENING NOTE (DAY SHIFT) RECEIVED PATIENT IN BED WITH HOB ELEVATED, PT IS AWAKE, ALERT ORIENTED X 1, CONFUSED. ON ROOM AIR BREATHING WITHOUT ANY DIFFICULTY, NO ACUTE DISTRESS NOTED. ON TELE MONITORING SHOWING CONTROLLED AFIB, TACHYCARDIA IN 100s BPM. FLACC SCORE 0. IV ACCESS ON RIGHT HAND G#22, CLEAN, PATENT AND INFUSING NS @75 ML/HR. SCD PUMP ON BILATERAL LEGS APPLIED. SAFETY AND ASPIRATION PRECAUTION MEASURES IN PLACE: BED IN LOWEST AND IN LOCKED POSITION, SIDE RAILS UP X3, HOB ELEVATED, ASPIRATION PRECAUTION SIGN UP, BED ALARM ON, CALL LIGHT AND TRAY TABLE WITHIN EASY REACH. WILL CONTINUE TO MONITOR AND CARE FOR PATIENT PER HOSPITALIST'S POC.
[2023-04-29] MEDS: ENSURE ENLIVE 237 ML LIQUID (VANILLA) PO SCH ×2 (08:30→18:29)
[2023-04-29] MEDS: CLOTRIMAZOLE/BETAMETASONE DIPROPIONATE 15 GM TUBE TP SCH ×2 (08:31→18:31)
[2023-04-29] MEDS: ACETAMINOPHEN 325 MG TABLET PO SCH ×3 (08:36→18:30)
[2023-04-29] MEDS: DIGOXIN 0.125 MG TABLET PO SCH (08:36)
[2023-04-29] MEDS: LIDOCAINE 5% (PATCH) 1 EA PATCH TP SCH (08:36)
[2023-04-29] MEDS: risperiDONE 1 MG TABLET PO SCH ×3 (08:36→21:06)
[2023-04-29] MEDS: RIVAROXABAN 10 MG TABLET PO SCH (08:37)
[2023-04-29 08:42] VITALS: BP 105/54
[2023-04-29] MEDS: METOPROLOL SUCCINATE 50 MG TAB.SR.24H PO SCH (09:00)
[2023-04-29 12:00] VITALS: BP 118/75
[2023-04-29 16:19] VITALS: BP 106/60
[2023-04-29] MEDS: ATORVASTATIN 40 MG TABLET PO SCH (18:30)
--- NOTE | 2023-04-29 18:58 | NUR ---
PORT STEWARD CLOSING NOTE (DAY SHIFT) PATIENT IN BED WITH HOB ELEVATED, AWAKE, ALERT, ORIENTED X 1, CONFUSED, SPEAKING TO HIMSELF WITH FLIGHT OF IDEAS, ON ROOM AIR BREATHING WITHOUT ANY DIFFICULTY, NO ACUTE RESPIRATORY DISTRESS NOTED. ON TELE MONITORING SHOWING CONTROLLED AFIB FLUCTUATING BETWEEN 80s TO 100s BPM. STILL WITH FLACC SCORE 0. IV ACCESS ON LEFT FOREARM G#22, CLEAN, PATENT AND INFUSING NS @75 ML/HR. STILL WITH SCD PUMPS ON BOTH LEGS. ALL DUE MEDS GIVEN, ALL NEEDS MET. PATIENT DIDN'T HAVE ANY EPISODES OF COMBATIVE BEHAVIOR DURING THE SHIFT. SAFETY AND ASPIRATION PRECAUTION MEASURES MAINTAINED: BED IN LOWEST AND IN LOCKED POSITION, SIDE RAILS UP X 3, HOB ELEVATED, ASPIRATION PRECAUTION SIGN UP, BED ALARM ON, CALL LIGHT AND TRAY TABLE WITHIN EASY REACH. WILL ENDORSE TO GROUNDSKEEPING YARDMAN NURSE.
--- NOTE | 2023-04-29 19:34 | NUR ---
TELE GRINDING MACHINE OPERATOR INITIAL NOTES Received pt in bed on sitting position awake with O2 at 2liters via NC , confused, noticed talking to himself, with mittens on both hands , pulse present, skin warm to touch. IVF NS AT 75ML/HR infusing at this time. He also on Intermittent DVT pump . No signs of any acute distress or any discomfort. Re-oriented where he at but seem he doesn't listen to me he liked talking to someone. He also on tele Afib controlled heart rate 83 per monitor. Kept him warm and comfortable at all times. Bed in low and lock in position with side rails X2 up. will continue monitoring.
[2023-04-29] MEDS: DONEPEZIL 5 MG TABLET PO SCH (21:36)
--- NOTE | 2023-04-29 22:00 | NUR ---
telel transfer professor note patient tolerated well his po medication , aspiration precaution implemented and observed. Snacks served as well.Kept him warm and comfortable at all times. will continue monitoring.
[2023-04-30] MEDS: IV NS 0.9% 1,000 ML IV PRN ×2 (02:09→15:41)
--- NOTE | 2023-04-30 07:25 | NUR ---
TELE ASSISTANT STATISTICIAN CLOSING NOTES PT AWAKE AND ALERT STILL CONFUSION NOTED. PT STABLE THROUGHOUT THE NIGHT, NO SIGNS OF ANY ACUTE DISTRESS NOTED. STILL WITH IVF OF NS AT 75ML/HR INFUSING ON HIS LEFT FOREARM. MORNING CARE DONE WELL SKIN CARE TREATMENT. STILL ON MITTENS PULSE PRESENT AND SKIN WARM TO TOUCH. KEPT HIM WARM AND COMFORTABLE AT ALL TIMES. TELE AFIB CONTROLLED AND VITAL SIGNS STABLE SINCE LAST NIGHT . BED IN LOW AND LOCK IN POSITION WITH SIDE RAILS X2 UP AND PLACE CALL LIGHT AT REACH. ENDORSE TO AM NURSE FOR CONTINUITY OF CARE.
[2023-04-30 07:30] VITALS: BP 122/78
--- NOTE | 2023-04-30 07:47 | NUR ---
RESEARCH METHODS INSTRUCTOR OPENING NOTE (DAY SHIFT) RECEIVED PATIENT IN BED IN SEMI-VASQUEZ'S POSITION, ASLEEP, EASILY AROUSED PT IS CONFUSED, ORIENTED X 1, ON OXYGEN VIA NC @ 2 LPM, BREATHING WITHOUT ANY DIFFICULTY, NO ACUTE DISTRESS NOTED. ON TELE MONITORING SHOWING CONTROLLED AFIB, 80s TO 100s BPM RANGE. FLACC SCORE 0. IV ACCESS ON RIGHT HAND G#22, CLEAN, PATENT AND INFUSING NS @75 ML/HR. SCD PUMP ON BILATERAL LEGS APPLIED. SAFETY AND ASPIRATION PRECAUTION MEASURES IN PLACE: BED IN LOWEST AND IN LOCKED POSITION, SIDE RAILS UP X3, HOB ELEVATED, ASPIRATION PRECAUTION SIGN UP, BED ALARM ON, CALL LIGHT AND TRAY TABLE WITHIN EASY REACH. WILL CONTINUE TO MONITOR AND CARE FOR PATIENT PER HOSPITALIST'S POC.
[2023-04-30] MEDS: RIVAROXABAN 10 MG TABLET PO SCH (09:00)
[2023-04-30] MEDS: CLOTRIMAZOLE/BETAMETASONE DIPROPIONATE 15 GM TUBE TP SCH ×2 (11:19→18:10)
[2023-04-30] MEDS: ENSURE ENLIVE 237 ML LIQUID (VANILLA) PO SCH ×2 (11:19→18:08)
[2023-04-30] MEDS: ACETAMINOPHEN 325 MG TABLET PO SCH ×3 (11:22→18:09)
[2023-04-30] MEDS: METOPROLOL SUCCINATE 50 MG TAB.SR.24H PO SCH (11:23)
[2023-04-30] MEDS: DIGOXIN 0.125 MG TABLET PO SCH (11:23)
[2023-04-30] MEDS: LIDOCAINE 5% (PATCH) 1 EA PATCH TP SCH (11:23)
[2023-04-30] MEDS: risperiDONE 1 MG TABLET PO SCH ×3 (11:24→21:14)
[2023-04-30 11:30] VITALS: BP 134/84
--- NOTE | 2023-04-30 13:00 | NUR ---
DISCONTINUE TELEMETRY / TRANSFER TO MED/SURG STATUS RN NOTE (DAY SHIFT) Telemetry removed per MD order and transferred to Med/Surg Status.
[2023-04-30] MEDS ORDERED: OLANZAPINE 10 MG VIAL IM ONE (14:30)
[2023-04-30 15:30] VITALS: BP 117/75
--- NOTE | 2023-04-30 16:00 | NUR ---
MS RN AGGRESSIVE BEHAVIOR NOTE Attempted to remove bilateral hand mitten restraints from patient. While changing patient's diaper due to incontinence, patient fought staff, gabbing and squeezing hard on staff members' arms or hands, making fist, trying to hit staff. Patient made multiple3 attempts to get up out of bed on his own. Notified Dr. Michaud who ordered zyprexa 5 mg IM x 1 for agitation. Gave IM injection of zyprexa 5mg/1 mL to left deltoid arm muscle, which patient allowed peacefully and seemed to tolerate without distress. Patient calm at the moment. Will continue to monitor and care for patient per MD's POC.
[2023-04-30] MEDS: ATORVASTATIN 40 MG TABLET PO SCH (18:09)
--- NOTE | 2023-04-30 19:10 | NUR ---
MS RN CLOSING NOTE (DAY SHIFT) Patient resumed unsafe and aggressive behavior when incontinent, trying to get up OOB, climbing over bed side rails. Resisted help from staff and swinging arms at staff in attempt to strike staff members, yelling out loud, cursing, struggling against having diapre change and hygiene care given. Bilateral wrist restraints resumed, bed in lowest position, bed brakes locked on, bed alarm on, bed side rails up x 3, and endorsed to sugar chipper machine operator nurse to check patient frequently due to dementia, incontinence, fall risk, and restraints. Patient had poor appetite today. Patient did swallow all his prescibed medications crushed in apple sauce but was sometimes hesitated, enthralled by his own conversations he was having with himself. Patient seems even more confused than the previous two days.
--- NOTE | 2023-04-30 19:45 | NUR ---
MS CORE FEEDER INITIAL NOTES RECEIVED REPORT FROM AM NURSE AND PT SEEN ON HIS BED AWAKE AND STILL CONFUSED . RE-ORIENTED HIM WHERE HE AT BUT PT SEEM DOESN'T UNDERSTOOD WHAT I'M SAYING . HE STILL CONTINUE TALKING. NO SIGNS OF ANY ACUTE DISTRESS NOTED, STILL WITH IVF OF NS AT 75ML/HR INFUSING ON HER LEFT FOREARM. TRIED TO REMOVED THE MITTENS ON HIS LEFT HAND BUT PT STARTING TO REMOVED THE OTHER MITTENS . DVT PUMP BOTH LOWER LEGS STILL ON .KEPT HIM ON SEMI FOWLERS POSITION WITH SIDE RAILS X2 UP . WILL CONTINUE MONITORING.
[2023-04-30] MEDS: DIVALPROEX SODIUM 250 MG TABLET.DR PO SCH (19:51)
[2023-04-30 20:00] VITALS: BP 113/49
[2023-04-30] MEDS: DONEPEZIL 5 MG TABLET PO SCH (21:13)
--- NOTE | 2023-04-30 21:24 | NUR ---
MS CONNOR NOTES ROUTINE MEDS GIVEN WITH PUDDING AND JELLO, PT TOLERATED WELL, ASPIRATION PRECAUTION IMPLEMENTED AND OBSERVED. KEPT HIM WARM AND COMFORTABLE AT ALL TIMES. WILL CONTINUE MONITORING.
--- NOTE | 2023-05-01 04:31 | NUR ---
MS CONNOR NOTES PT RESTING AT THIS TIME NO SIGNS OF ANY DISTRESS OR ANY DISCOMFORT NOTED. KEPT HIM WARM AND COMFORTABLE AT ALL TIMES. WILL CONTINUE CLOSELY MONITORING FOR SAFETY.
[2023-05-01 07:00] VITALS: BP 163/108
--- NOTE | 2023-05-01 07:25 | NUR ---
MS TRAINING MGR CLOSING NOTES PT AWAKE NOW AND STILL CONFUSED, NOT IN ANY ACUTE DISTRESS OR ANY DISCOMFORT NOTED. ALL DUE MEDS GIVEN AND ALL NEEDS MET. PT STILL ON IVF NS AT 75 ML/HR . STILL ON MITTENS FOR PT SAFETY . KEPT HIM WARM AND COMFORTABLE AT ALL TIMES. ENDORSE TO AM NURSE .
--- NOTE | 2023-05-01 07:30 | NUR ---
RN OPENING NOTES RECEIVED PATIENT LAYING IN BED A/0X1 TO NAME ONLY. BILATERAL MITTEN RESTRAINTS IN PLACE AT THE MOMENT. PT IS CALM AND CONSTANTLY TOUCHING IV SITE. R WRIST IV INTACT AND PATENT. BOWEL SIGNS ARE ACTIVE. PT IS ON RA O2 @99%, NO SIGNS OF DISTRESS OR SOB AT THE MOMENT. BED AT LOWEST POSITION, CALL LIGHT WITHIN REACH, AND HOB ELEVATED 45 DEGREES. WILL CONTINUE TO MONITOR.
[2023-05-01] MEDS: METOPROLOL SUCCINATE 50 MG TAB.SR.24H PO SCH (08:10)
[2023-05-01] MEDS: risperiDONE 1 MG TABLET PO SCH ×4 (08:11→21:45)
[2023-05-01] MEDS: DIGOXIN 0.125 MG TABLET PO SCH (08:11)
[2023-05-01] MEDS: RIVAROXABAN 10 MG TABLET PO SCH (08:18)
[2023-05-01] MEDS: DIVALPROEX SODIUM 250 MG TABLET.DR PO SCH ×3 (08:18→16:21)
[2023-05-01] MEDS: ENSURE ENLIVE 237 ML LIQUID (VANILLA) PO SCH ×2 (08:19→16:22)
[2023-05-01] MEDS: LIDOCAINE 5% (PATCH) 1 EA PATCH TP SCH (08:19)
[2023-05-01] MEDS: ACETAMINOPHEN 325 MG TABLET PO SCH ×3 (08:21→16:21)
[2023-05-01] MEDS: CLOTRIMAZOLE/BETAMETASONE DIPROPIONATE 15 GM TUBE TP SCH ×2 (08:21→16:22)
--- NOTE | 2023-05-01 10:10 | NUR ---
RN NOTE. MITTEN RESTRAINTS REMOVED AT THIS TIME. PT IS CALM AND COOPERATIVE AT THE MOMENT.
[2023-05-01 16:14] VITALS: BP 107/68
[2023-05-01] MEDS: ATORVASTATIN 40 MG TABLET PO SCH (18:26)
--- NOTE | 2023-05-01 19:10 | NUR ---
MS RN OPENING NOTES RECEIVED PATIENT IN BED WITH HOB ELEVATED AT 90 DEGREE. PT IS SLEEPING, EASILY BEING AROUSED. HE IS ALERT AND ORIENTED TO HIS NAME ONLY; AO X1. PT IS VERY CONFUSED. PT IS ON ROOM AIR; TOLERATED WELL. NO S/S OF DISTRESS OR SOB. PT DOES NOT SHOW ANY S/S OF HAVING PAIN. IV ACCESS IS AT HIS L FA, #22G, SL. FLUSHED WELL WITH 10 CC OF NS. IV SITE IS PATENT AND INTACT. SAFETY AND ASPIRATION PRECAUTION MEASURES ARE IN PLACE: BED IN LOWEST AND LOCKED POSITION, SIDE RAILS UP X3, HOB ELEVATED > 45 DEGREE WITH ASPIRATION PRECAUTION SIGN POSTED ON THE WALL. BED ALARM IS ON; CALL LIGHT AND TRAY TABLE ARE WITHIN EASY REACH. WILL CONTINUE TO MONITOR THE PT AND PROVIDE THE CARE PT NEEDS..
--- NOTE | 2023-05-01 19:12 | NUR ---
RN CLOSING NOTES PATIENT LAYING IN BED A/0X1 TO NAME ONLY. PT IS CALM AND CONSTANTLY TOUCHING IV SITE. R WRIST IV INTACT AND PATENT. BOWEL SIGNS ARE ACTIVE. PT IS ON RA O2 @99%, NO SIGNS OF DISTRESS OR SOB AT THE MOMENT. BED AT LOWEST POSITION, CALL LIGHT WITHIN REACH, AND HOB ELEVATED 45 DEGREES. WILL DISCLOSE TO LIGHT TRUCK DRIVER FOR RHETT.
[2023-05-01 20:00] VITALS: BP 140/83
[2023-05-01] MEDS: DONEPEZIL 5 MG TABLET PO SCH (21:46)
[2023-05-02 06:49] LABS: BASOPHILS % (AUTO) 0.4 % (0.0-2.0); EOSINOPHILS % (AUTO) 1.7 % (0.0-6.0); HEMATOCRIT 42 % (39-51); HEMOGLOBIN 13.6 g/dL (13.5-17.5); LYMPHOCYTES # (AUTO) 2.2 K/uL (0.8-4.8); LYMPHOCYTES % (AUTO) 30.2 % (20.0-44.0); MEAN CORPUSCULAR HGB CONC 33 g/dl (31.0-36.0); MEAN CORPUSCULAR VOLUME 87 fL (80-96); MONOCYTES # (AUTO) 0.5 K/uL (0.1-1.30); NEUTROPHILS # (AUTO) 4.3 K/uL (1.8-8.9); NEUTROPHILS % (AUTO) 60.7 % (43.0-81.0); PLATELET COUNT (AUTO) 128 K/uL (150-450); RED BLOOD CELL COUNT(AUTO) 4.78 MIL/uL (4.5-6.0); WHITE BLOOD COUNT (AUTO) 7.1 K/uL (4.3-11.0)
--- NOTE | 2023-05-02 06:50 | NUR ---
MS RN CLOSING NOTES PATIENT IS IN BED WITH HOB ELEVATED. PT IS SLEEPING, EASILY BEING AROUSED. HE IS ALERT AND ORIENTED TO HIS NAME ONLY; AO X1. PT IS VERY CONFUSED. PT IS ON ROOM AIR; TOLERATED WELL. NO S/S OF DISTRESS OR SOB. PT DOES NOT SHOW ANY S/S OF HAVING PAIN. IV ACCESS IS AT HIS L FA, #22G, SL. FLUSHED WELL WITH 10 CC OF NS. IV SITE IS PATENT AND INTACT. SAFETY AND ASPIRATION PRECAUTION MEASURES ARE IN PLACE: BED IN LOWEST AND LOCKED POSITION, SIDE RAILS UP X3, HOB ELEVATED > 45 DEGREE WITH ASPIRATION PRECAUTION SIGN POSTED ON THE WALL. BED ALARM IS ON; CALL LIGHT AND TRAY TABLE ARE WITHIN EASY REACH. WILL ENDORSE NEXT SHIFT NURSE FOR CONTINUING PT CARE.
[2023-05-02 07:00] LABS: CALCIUM, SERUM 9.4 mg/dL (8.5-10.1); CARBON DIOXIDE 28 mmol/L (21-32); CHLORIDE 107 mmol/L (98-107); CREATININE 0.6 mg/dL (0.6-1.3); GLUCOSE 89 mg/dL (74-106); POTASSIUM 3.9 mmol/L (3.5-5.1); SODIUM SERUM 143 mmol/L (136-145); UREA NITROGEN, BLOOD 10 mg/dL (7-18)
[2023-05-02 07:30] VITALS: BP 109/79
--- NOTE | 2023-05-02 07:30 | NUR ---
OPENING NOTE PATIENT AWAKE A/Ox1, CONFUSED. ON ROOM AIR, WITH NO S/S OF SOB. O2 94%. HAS NC 2L, CURRENTLY NOT USING, PATIENT REFUSING IT. IV ACCESS ON LFA 22G, CLEAN AND INTACT. NO PAIN AT THIS TIME. RECEPTIVE TO COMMANDS. SKIN INTACT WITH BUTTOCKS REDNESS. ON BED REST: INCONTINENT. FALL AND SAFETY PRECAUTIONS MAINTAINED: BED LOCKED AND AT THE LOWEST POSITION, SRx2, CALL LIGHT WITHIN REACH.
[2023-05-02] MEDS: METOPROLOL SUCCINATE 50 MG TAB.SR.24H PO SCH (09:00)
[2023-05-02] MEDS: ACETAMINOPHEN 325 MG TABLET PO SCH ×3 (09:31→16:05)
[2023-05-02] MEDS: DIVALPROEX SODIUM 250 MG TABLET.DR PO SCH ×3 (09:31→16:05)
[2023-05-02] MEDS: DIGOXIN 0.125 MG TABLET PO SCH (09:32)
[2023-05-02] MEDS: risperiDONE 1 MG TABLET PO SCH ×4 (09:32→21:18)
[2023-05-02] MEDS: ENSURE ENLIVE 237 ML LIQUID (VANILLA) PO SCH ×2 (09:38→16:05)
[2023-05-02] MEDS: RIVAROXABAN 10 MG TABLET PO SCH (09:38)
[2023-05-02] MEDS: CLOTRIMAZOLE/BETAMETASONE DIPROPIONATE 15 GM TUBE TP SCH ×2 (10:10→16:04)
--- NOTE | 2023-05-02 13:00 | NUR ---
MEDICATION NOTE HELD 1300 MEDICATION PT TOO SEDATED. ASPIRATION PRECAUTION.
[2023-05-02 15:30] VITALS: BP 108/49
[2023-05-02] MEDS: LORAZEPAM 1 MG TABLET PO PRN (18:48)
[2023-05-02] MEDS: ATORVASTATIN 40 MG TABLET PO SCH (18:48)
--- NOTE | 2023-05-02 18:55 | NUR ---
CLOSING NOTE PATIENT AWAKE, CONFUSED AA//Ox1 . ON ROOM AIR, WITH NO S/S OF SOB. IV ACCESS ON LFA 22G, CLEAN, UNABLE TO ACCESS PATENCY DUE TO SAFETY PRECAUTION. NO PAIN AT THIS TIME. PATIENT WS GIVEN PRN FOR AGITATION, AGGRESSION AND FALL RISK. UNABLE TO AMBULATE AND TRYING TO GET OFF THE BED. MEDICATION ADMINISTRATION GIVEN ORDER/PER PT STATUS. FALL AND SAFETY PRECAUTIONS MAINTAINED: BED LOCKED AND AT THE LOWEST POSITION, SRx2, CALL LIGHT WITHIN REACH.
--- NOTE | 2023-05-02 19:15 | NUR ---
noc rn opening received patient in bed, HOB elevated, a/ox1 to name, calm at this time patient responding to internal stimuli. patient has no s/s of apparent distress in room air. denies pain. no fluids running at this time. safety in place-- bed in lowest, locked position, call light within reach, side rails up X3, bed sensitivity in place. will continue with the plan of care for patient.
[2023-05-02 20:00] VITALS: BP 98/66
[2023-05-02] MEDS: DONEPEZIL 5 MG TABLET PO SCH (21:18)
[2023-05-03] MEDS: LORAZEPAM 1 MG TABLET PO PRN (07:36)
[2023-05-03] MEDS ORDERED: DIVA250T4 PO (08:40)
[2023-05-03] MEDS ORDERED: RISP1TAB7 PO (08:40)
[2023-05-03] MEDS ORDERED: LORA-259 PO (08:40)
[2023-05-03] MEDS: METOPROLOL SUCCINATE 50 MG TAB.SR.24H PO SCH (09:00)
[2023-05-03] MEDS: LIDOCAINE 5% (PATCH) 1 EA PATCH TP SCH (09:00)
[2023-05-03] MEDS: ACETAMINOPHEN 325 MG TABLET PO SCH (09:22)
[2023-05-03] MEDS: risperiDONE 1 MG TABLET PO SCH (09:24)
[2023-05-03] MEDS: DIVALPROEX SODIUM 250 MG TABLET.DR PO SCH (09:24)
[2023-05-03] MEDS: DIGOXIN 0.125 MG TABLET PO SCH (09:24)
[2023-05-03] MEDS: RIVAROXABAN 10 MG TABLET PO SCH (09:25)
[2023-05-03] MEDS: ENSURE ENLIVE 237 ML LIQUID (VANILLA) PO SCH (09:28)
[2023-05-03] MEDS: CLOTRIMAZOLE/BETAMETASONE DIPROPIONATE 15 GM TUBE TP SCH (09:52)
[2023-05-03 09:55] VITALS: BP 125/78
--- NOTE | 2023-05-03 12:20 | NUR ---
ROSARIO DC NOTE PATENT IS STABLE AND ASLEEP. COMPLIANT AND NO SIGNS OF DISTRESS. SOB NOT NOTED AT THIS TIME. SIGNED DISCHARGE INSTRUCTIONS WITH NICOLAS DUE TO A/OX1. PATENT LEFT UNIT VIA GURNEY WITH EMT. REMOVED IV SITE AND WRISTBAND. Addendum: 05/03/23 at 1309 by ANTONIO DAVIS RN GIVEN REPORT TO MANOLO TAVERAS) AT [facility].
== END 2023-05-03 12:30 | DRG 193 ==
LOC: MED 20:36 → TELE 22:42 → MED 04-30 12:24
PROVIDERS: ADMIT Nurse Practitioner Acute Care; ATTEND Internal Medicine
DX: J15.9 Unspecified bacterial pneumonia (principal); G92.8 Other toxic encephalopathy; N17.0 Acute kidney failure with tubular necrosis; E44.0 Moderate protein-calorie malnutrition; I48.20 Chronic atrial fibrillation, unspecified; F05 Delirium due to known physiological condition; Z20.822 Contact with and (suspected) exposure to COVID-19; F03.90 Unspecified dementia, unspecified severity, without behavioral disturbance, psychotic disturbance, mood disturbance, and anxiety; I25.10 Atherosclerotic heart disease of native coronary artery without angina pectoris; E78.5 Hyperlipidemia, unspecified; F41.9 Anxiety disorder, unspecified; Z79.899 Other long term (current) drug therapy; Z79.01 Long term (current) use of anticoagulants; F29 Unspecified psychosis not due to a substance or known physiological condition; I10 Essential (primary) hypertension; N40.0 Benign prostatic hyperplasia without lower urinary tract symptoms; E88.09 Other disorders of plasma-protein metabolism, not elsewhere classified; Y95 Nosocomial condition
CPT/HCPCS: 36415; 36600; 80048-TC; 80053-TC; 82803-TC; 83735-TC; 84100-TC; 85025-TC; 87081-TC; 92526; 92611-TC; 93307-TC; A4223; G0378; J0456; J0696; J3490; J7030; J7042; J7060